=== PATIENT | male | born 1955 | race American Indian/Alaskan Native ===

== ENCOUNTER 2017-01-09 08:40 | Emergency (ER) | payer OTHER ==
[2017-01-09 09:13] LABS: Basophils % (Auto) 0.8 % (0.0-1.8); Eosinophils % (Auto) 3.5 % (0.0-4.3); Hematocrit 42.8 % (35.5-45.6); Hemoglobin 14.1 gm/dl (11.8-15.2); Mean Corpuscular HGB Conc 33 % (32-34); Mean Corpuscular Hemoglobin 32 pg (28-32); Mean Corpuscular Volume 96 fl (84-94); Platelet Count 207 K/mm3 (140-440); Red Blood Count 4.48 M/mm3 (3.65-5.03); Red Cell Distribution Width 12.7 % (13.2-15.2); White Blood Count 6.9 K/mm3 (4.5-11.0)
[2017-01-09 09:30] LABS: Alanine Aminotransferase 23 units/L (7-56); Albumin 4.4 g/dL (3.9-5); Albumin/Globulin Ratio 1.3 %; Alkaline Phosphatase 61 units/L (35-129); Anion Gap 16 mmol/L; BUN/Creatinine Ratio 15.55; Blood Urea Nitrogen 14 mg/dL (9-20); Calcium 9.3 mg/dL (8.4-10.2); Carbon Dioxide 30 mmol/L (22-30); Chloride 100.1 mmol/L (98-107); Glucose 100 mg/dL (75-100); Lipase 36 units/L (13-60); Potassium 4.4 mmol/L (3.6-5.0); Sodium 142 mmol/L (137-145); Total Protein 7.7 g/dL (6.3-8.2)
[2017-01-09 09:38] LABS: Bilirubin,Urine NEG (Negative); Blood,Urine NEG (Negative); Ketones,Urine NEG (Negative); Leukocyte Esterase,Urine NEG (Negative); Nitrite,Urine NEG (Negative); Protein,Urine <15 mg/dL mg/dL (Negative); Urobilinogen,Urine < 2.0 mg/dL (<2.0); WBC,Urine < 1.0 /HPF (0.0-6.0)
[2017-01-09] MEDS ORDERED: TORADOL IV ONE (10:25)
[2017-01-09] MEDS ORDERED: MORPHINE IV ONE (10:25)
[2017-01-09] MEDS ORDERED: ZOFRAN IV ONE (10:25)
--- NOTE | 2017-01-09 10:30 | Emergency Department Report ---
ED Abdominal Pain HPI - General Chief Complaint: Abdominal Pain Stated Complaint: RIGHT LOWER BACK Time Seen by Provider: 01/09/17 10:20 Source: patient Mode of arrival: Ambulatory Limitations: No Limitations - History of Present Illness Initial Comments: Patient is 61 years old male coming today was right flank pain that started 2 days ago, intermittent, stabbing in nature, radiates to his groin. no similar symptoms before. Denied vomiting but he is nauseated. No fever. MD Complaint: abdominal pain, flank pain -: Sudden Location: R flank Migration to: suprapubic Severity scale (0 -10): 7 Quality: stabbing Consistency: intermittent Associated Symptoms: nausea - Related Data Home Medications Medication Instructions Recorded Confirmed Last Taken Albuterol Sulfate [Ventolin HFA] 18 gm IH Q4-6H PRN 01/12/13 03/14/16 02/09/16 Aclidinium [place] [Tudorza 400 mcg IH DAILY 01/12/16 03/14/16 03/13/16 Pressair] Budesoni/Formotero 160-4.5(Nf) 1 puff IH DAILY 01/12/16 03/14/16 02/09/16 [Symbicort 160-4.5 (Nf)] Ipratropium [Atrovent NEB] 0.5 mg IH Q6HRT 01/12/16 03/14/16 03/13/16 Previous Rx's Medication Instructions Recorded Last Taken Type ALBUTEROL NEB's [Proventil 0.083% 2.5 mg IH TID PRN #1 ml 01/12/13 03/13/16 Rx NEBS] Azithromycin [Zithromax Z-SANDRA] 0 mg PO DAILY #1 tab 03/18/16 Unknown Rx Famotidine [Pepcid] 20 mg PO BID #60 tablet 03/18/16 Unknown Rx Labetalol [Normodyne TAB] 200 mg PO BID #60 tablet 03/18/16 Unknown Rx Montelukast [Singulair] 10 mg PO QHS #30 tablet 03/18/16 Unknown Rx Rivaroxaban [Xarelto] 15 mg PO BIDDIAB #42 tablet 03/18/16 Unknown Rx predniSONE [Deltasone] 10 mg PO .TAPER #21 tab 03/18/16 Unknown Rx Ondansetron [Zofran Odt] 4 mg PO Q8HR PRN #14 tab.rapdis 01/09/17 Unknown Rx traMADol [Ultram 50 MG tab] 50 mg PO Q4HR PRN #14 tablet 01/09/17 Unknown Rx Allergies Allergy/AdvReac Type Severity Reaction Status Date / Time Iodinated Contrast Media - Allergy Swelling Verified 02/28/16 03:21 IV Dye ED Review of Systems ROS: Stated complaint: RIGHT LOWER BACK Other details as noted in HPI Comment: All other systems reviewed and negative Constitutional: denies: chills, fever ENT: denies: throat pain Respiratory: denies: cough, shortness of breath Cardiovascular: denies: chest pain, palpitations Gastrointestinal: abdominal pain, nausea. denies: vomiting, diarrhea, constipation, hematemesis, melena, hematochezia Genitourinary: denies: urgency, dysuria, frequency, hematuria, testicular pain, testicular mass Musculoskeletal: back pain Neurological: denies: headache, weakness, numbness ED Past Medical Hx - Past Medical History Hx Hypertension: Yes Hx Headaches / Migraines: No Hx Seizures: No Hx Asthma: Yes Hx COPD: Yes Hx Dementia: No - Surgical History Additional Surgical History: 2000- lung - Social History Smoking Status: Never Smoker Substance Use Type: None - Medications Home Medications: Home Medications Medication Instructions Recorded Confirmed Last Taken Type ALBUTEROL NEB's [Proventil 0.083% 2.5 mg IH TID PRN #1 ml 01/12/13 03/14/16 Rx NEBS] Albuterol Sulfate [Ventolin HFA] 18 gm IH Q4-6H PRN 01/12/13 03/14/16 02/09/16 History Aclidinium [place] [Tudorza 400 mcg IH DAILY 01/12/16 03/14/16 03/13/16 History Pressair] Budesoni/Formotero 160-4.5(Nf) 1 puff IH DAILY 01/12/16 03/14/16 02/09/16 History [Symbicort 160-4.5 (Nf)] Ipratropium [Atrovent NEB] 0.5 mg IH Q6HRT 01/12/16 03/14/16 03/13/16 History Azithromycin [Zithromax Z-SANDRA] 0 mg PO DAILY #1 tab 03/18/16 Unknown Rx Famotidine [Pepcid] 20 mg PO BID #60 tablet 03/18/16 Unknown Rx Labetalol [Normodyne TAB] 200 mg PO BID #60 tablet 03/18/16 Unknown Rx Montelukast [Singulair] 10 mg PO QHS #30 tablet 03/18/16 Unknown Rx Rivaroxaban [Xarelto] 15 mg PO BIDDIAB #42 tablet 03/18/16 Unknown Rx predniSONE [Deltasone] 10 mg PO .TAPER #21 tab 03/18/16 Unknown Rx Ondansetron [Zofran Odt] 4 mg PO Q8HR PRN #14 tab.rapdis 01/09/17 Unknown Rx traMADol [Ultram 50 MG tab] 50 mg PO Q4HR PRN #14 tablet 01/09/17 Unknown Rx ED Physical Exam - General Limitations: No Limitations General appearance: alert, in distress (pain) - Head Head exam: Present: atraumatic, normocephalic - ENT ENT exam: Present: normal exam, normal orophraynx - Neck Neck exam: Present: normal inspection. Absent: tenderness, meningismus - Respiratory Respiratory exam: Present: normal lung sounds bilaterally. Absent: wheezes, rales, rhonchi, chest wall tenderness - Cardiovascular Cardiovascular Exam: Present: regular rate, normal rhythm, normal heart sounds - GI/Abdominal GI/Abdominal exam: Present: soft. Absent: distended, tenderness, guarding, rebound, rigid, mass, bruit, pulsatile mass - Extremities Exam Extremities exam: Present: normal inspection, full ROM - Back Exam Back exam: Present: normal inspection, CVA tenderness (R). Absent: muscle spasm , paraspinal tenderness, vertebral tenderness - Neurological Exam Neurological exam: Present: alert, oriented X3, CN II-XII intact, normal gait. Absent: motor sensory deficit - Skin Skin exam: Present: warm, intact, normal color ED Course Vital Signs 01/09/17 01/09/17 08:46 10:41 Temperature 97.6 F Pulse Rate 68 Respiratory 20 16 Rate Blood Pressure 165/90 O2 Sat by Pulse 99 Oximetry - Reevaluation(s) Reevaluation #1: 01/09/17 12:15 Patient stated that he feels much better after the pain medicine I informed him about his CT abdomen and pelvis results which show gallbladder stones no kidney stone and advised him to follow up with his primary care physician to follow up with the surgeon. ED Medical Decision Making - Lab Data Result diagrams: 01/09/17 08:59 01/09/17 08:59 - Radiology Data Radiology results: report reviewed CT abdomen and pelvis with 5 mm stone in the gallbladder Critical care attestation.: If time is entered above; I have spent that time in minutes in the direct care of this critically ill patient, excluding procedure time. ED Disposition Clinical Impression: Abdominal pain, Gall bladder stones Disposition: - TO HOME OR SELFCARE Is pt being admited?: No Condition: Stable Instructions: Abdominal Pain (ED), Biliary Colic (ED) Prescriptions: Ondansetron [Zofran Odt] 4 mg PO Q8HR PRN #14 tab.rapdis PRN Reason: Nausea And Vomiting traMADol [Ultram 50 MG tab] 50 mg PO Q4HR PRN #14 tablet PRN Reason: Pain Referrals: [facility]PT[facility] [Other] - 3-5 Days
--- NOTE | 2017-01-09 11:32 | Cat Scan Report ---
CT OF THE ABDOMEN AND PELVIS WITHOUT CONTRAST HISTORY: Abdominal pain, right flank pain.. TECHNIQUE: Helical CT without contrast. Sagittal and coronal reformatted images. FINDINGS: A solitary 5 mm calcified gallstone is noted in the neck of the gallbladder. No biliary dilatation or inflammation. Within the limits of a noncontrast exam, the remaining abdominal and pelvic viscera are within normal limits. The liver, biliary system, spleen, kidneys, adrenal glands and bladder are unremarkable. The bowel loops are normal caliber and wall thickness. Normal appendix. The aorta is normal caliber. No ascites, bulky adenopathy or inflammatory changes. The lung bases are clear. Normal heart size. No suspicious bony lesion. Mild degenerative changes are noted in the lumbar spine. IMPRESSION: 5 mm gallstone, otherwise, unremarkable exam.
[2017-01-09 12:57] VITALS: BP 130/87
== END 2017-01-09 12:45 | disposition home or self-care (01) ==
LOC: ED 08:40
DX: K80.20 Calculus of gallbladder without cholecystitis without obstruction (principal); R10.30 Lower abdominal pain, unspecified; I10 Essential (primary) hypertension; J45.909 Unspecified asthma, uncomplicated; Z88.8 Allergy status to other drugs, medicaments and biological substances
CPT/HCPCS: 36415; 74176; 80053; 81001; 83690; 85025; 96374; 96375; 99284; J1885; J2270; J2405

== ENCOUNTER 2018-01-15 01:56 | Inpatient (IN) | payer OTHER ==
[2018-01-15] MEDS ORDERED: DUONEB *Not for PRN Use IH ONE (02:07)
[2018-01-15] MEDS ORDERED: SOLU-Medrol IV ONE (02:18)
--- NOTE | 2018-01-15 02:23 | Emergency Department Report ---
ED Shortness of Breath HPI - General Chief Complaint: Dyspnea/Respdistress Stated Complaint: SOUYMA Time Seen by Provider: 01/15/18 02:15 Source: patient, family Mode of arrival: Wheelchair Limitations: Other - History of Present Illness Initial Comments: Mr. Vega is 62 years old male history of COPD and asthma. Patient presented to the ER complaining of difficulty breathing and wheezing for the last 2 days. Patient stated that he's been using his albuterol regularly but no improvement. Patient denied any chest pain, fever, nausea or vomiting. MD Complaint: shortness of breath, cough, "asthma attack" -: days(s) Severity: moderate Known History Of: COPD, asthma Context: recent URI - Related Data Home Medications Medication Instructions Recorded Confirmed Last Taken Albuterol Sulfate [Ventolin HFA] 18 gm IH Q4-6H PRN 01/12/13 03/14/16 02/09/16 Aclidinium [place] [Tudorza 400 mcg IH DAILY 01/12/16 03/14/16 03/13/16 Pressair] Budesoni/Formotero 160-4.5(Nf) 1 puff IH DAILY 01/12/16 03/14/16 02/09/16 [Symbicort 160-4.5 (Nf)] Ipratropium [Atrovent NEB] 0.5 mg IH Q6HRT 01/12/16 03/14/16 03/13/16 Previous Rx's Medication Instructions Recorded Last Taken Type ALBUTEROL NEB's [Proventil 0.083% 2.5 mg IH TID PRN #1 ml 01/12/13 03/13/16 Rx NEBS] Azithromycin [Zithromax Z-SANDRA] 0 mg PO DAILY #1 tab 03/18/16 Unknown Rx Famotidine [Pepcid] 20 mg PO BID #60 tablet 03/18/16 Unknown Rx Labetalol [Normodyne TAB] 200 mg PO BID #60 tablet 03/18/16 Unknown Rx Montelukast [Singulair] 10 mg PO QHS #30 tablet 03/18/16 Unknown Rx Rivaroxaban [Xarelto] 15 mg PO BIDDIAB #42 tablet 03/18/16 Unknown Rx predniSONE [Deltasone] 10 mg PO .TAPER #21 tab 03/18/16 Unknown Rx Ondansetron [Zofran Odt] 4 mg PO Q8HR PRN #14 tab.rapdis 01/09/17 Unknown Rx traMADol [Ultram 50 MG tab] 50 mg PO Q4HR PRN #14 tablet 01/09/17 Unknown Rx Allergies Allergy/AdvReac Type Severity Reaction Status Date / Time Iodinated Contrast- Oral and Allergy Swelling Verified 02/28/16 03:21 IV Dye [Iodinated Contrast Media - IV Dye] ED Review of Systems ROS: Stated complaint: SOUMYA Other details as noted in HPI Comment: All other systems reviewed and negative Constitutional: denies: chills, fever ENT: denies: throat pain Respiratory: cough, shortness of breath, SOB with exertion, SOB at rest, wheezing Cardiovascular: dyspnea on exertion, orthopnea. denies: chest pain, palpitations Gastrointestinal: denies: abdominal pain, nausea, vomiting, diarrhea, constipation, hematemesis, melena, hematochezia Genitourinary: denies: urgency, dysuria, frequency, hematuria, discharge Neurological: denies: headache, weakness, numbness, paresthesias, confusion, abnormal gait ED Past Medical Hx - Past Medical History Previous Medical History?: Yes Hx Hypertension: Yes Hx Headaches / Migraines: No Hx Seizures: No Hx Asthma: Yes Hx COPD: Yes Hx Dementia: No - Surgical History Past Surgical History?: Yes Additional Surgical History: 2000- lung - Social History Smoking Status: Never Smoker Substance Use Type: Alcohol - Medications Home Medications: Home Medications Medication Instructions Recorded Confirmed Last Taken Type ALBUTEROL NEB's [Proventil 0.083% 2.5 mg IH TID PRN #1 ml 01/12/13 03/14/16 Rx NEBS] Albuterol Sulfate [Ventolin HFA] 18 gm IH Q4-6H PRN 01/12/13 03/14/16 02/09/16 History Aclidinium [place] [Tudorza 400 mcg IH DAILY 01/12/16 03/14/16 03/13/16 History Pressair] Budesoni/Formotero 160-4.5(Nf) 1 puff IH DAILY 01/12/16 03/14/16 02/09/16 History [Symbicort 160-4.5 (Nf)] Ipratropium [Atrovent NEB] 0.5 mg IH Q6HRT 01/12/16 03/14/16 03/13/16 History Azithromycin [Zithromax Z-SANDRA] 0 mg PO DAILY #1 tab 03/18/16 Unknown Rx Famotidine [Pepcid] 20 mg PO BID #60 tablet 03/18/16 Unknown Rx Labetalol [Normodyne TAB] 200 mg PO BID #60 tablet 03/18/16 Unknown Rx Montelukast [Singulair] 10 mg PO QHS #30 tablet 03/18/16 Unknown Rx Rivaroxaban [Xarelto] 15 mg PO BIDDIAB #42 tablet 03/18/16 Unknown Rx predniSONE [Deltasone] 10 mg PO .TAPER #21 tab 03/18/16 Unknown Rx Ondansetron [Zofran Odt] 4 mg PO Q8HR PRN #14 tab.rapdis 01/09/17 Unknown Rx traMADol [Ultram 50 MG tab] 50 mg PO Q4HR PRN #14 tablet 01/09/17 Unknown Rx ED Physical Exam - General Limitations: Other General appearance: alert, in distress (moderate respiratory distress), other ( decubiti) - Head Head exam: Present: atraumatic, normocephalic, normal inspection - Eye Eye exam: Present: normal appearance, PERRL - ENT ENT exam: Present: normal exam, normal orophraynx, mucous membranes moist - Neck Neck exam: Present: normal inspection, full ROM. Absent: tenderness, meningismus, lymphadenopathy, thyromegaly - Respiratory Respiratory exam: Present: respiratory distress, wheezes, rales, rhonchi, decreased breath sounds, prolonged expiratory. Absent: stridor, accessory muscle use - Cardiovascular Cardiovascular Exam: Present: regular rate, normal rhythm, normal heart sounds - GI/Abdominal GI/Abdominal exam: Present: soft, normal bowel sounds. Absent: distended, tenderness, guarding, rebound, rigid, organomegaly, mass, pulsatile mass - Extremities Exam Extremities exam: Present: normal inspection, full ROM, normal capillary refill. Absent: tenderness, pedal edema, calf tenderness - Back Exam Back exam: Present: normal inspection, full ROM. Absent: tenderness, CVA tenderness (R), CVA tenderness (L), muscle spasm, paraspinal tenderness, vertebral tenderness, rash noted - Neurological Exam Neurological exam: Present: alert, oriented X3, CN II-XII intact, normal gait, reflexes normal - Skin Skin exam: Present: warm, intact, normal color ED Course Vital Signs 01/15/18 01/15/18 01/15/18 02:00 02:03 02:13 Temperature 97.7 F Pulse Rate 99 H 95 H Pulse Rate [ 100 H Posterior Bilateral Throughout] Respiratory 26 H 30 H Rate Respiratory 28 H Rate [Posterior Bilateral Throughout] Blood Pressure 181/95 Blood Pressure 178/85 [Left] O2 Sat by Pulse 88 98 Oximetry 01/15/18 01/15/18 01/15/18 02:21 02:45 03:15 Temperature Pulse Rate 111 H 88 Pulse Rate [ 93 H Posterior Bilateral Throughout] Respiratory 25 H 19 Rate Respiratory 22 Rate [Posterior Bilateral Throughout] Blood Pressure 169/94 Blood Pressure [Left] O2 Sat by Pulse 100 97 Oximetry 01/15/18 01/15/18 03:45 04:45 Temperature Pulse Rate 87 84 Pulse Rate [ Posterior Bilateral Throughout] Respiratory 22 21 Rate Respiratory Rate [Posterior Bilateral Throughout] Blood Pressure 166/95 176/91 Blood Pressure [Left] O2 Sat by Pulse 99 97 Oximetry ED Medical Decision Making - Lab Data Result diagrams: 01/15/18 02:32 01/15/18 02:32 - Radiology Data Radiology results: report reviewed - Medical Decision Making Mr. Vega is 62 years old male history of COPD and asthma. Patient presented to the ER complaining of difficulty breathing and wheezing for the last 2 days. Patient stated that he's been using his albuterol regularly but no improvement. Patient denied any chest pain, fever, nausea or vomiting. Patient stated that he is feeling much better. Lung exam no wheezing. I advised patient to follow-up with his primary care physician in the next 2-3 days entertained to the ER if symptoms are not improving. Critical Care Time: Yes Critical care time in (mins) excluding proc time.: 30 Critical care attestation.: If time is entered above; I have spent that time in minutes in the direct care of this critically ill patient, excluding procedure time. ED Disposition Clinical Impression: Acute exacerbation of COPD with asthma Disposition: -01 TO HOME OR SELFCARE Is pt being admited?: No Condition: Stable Instructions: Asthma (ED), Chronic Obstructive Pulmonary Disease (ED) Referrals: PRIMARY CARE, [Primary Care Provider] - 3-5 Days
[2018-01-15] MEDS ORDERED: ATIVAN IV ONE (02:36)
[2018-01-15] MEDS ORDERED: ATIVAN ONE (02:41)
[2018-01-15 02:43] LABS: Basophils # (Auto) 0.1 K/mm3 (0.0-0.1); Basophils % (Auto) 0.8 % (0.0-1.8); Eosinophils # (Auto) 0.4 K/mm3 (0.0-0.4); Eosinophils % (Auto) 4.3 % (0.0-4.3); Hematocrit 42.9 % (35.5-45.6); Hemoglobin 14.2 gm/dl (11.8-15.2); Lymphocytes # (Auto) 3.6 K/mm3 (1.2-5.4); Lymphocytes % (Auto) 41.5 % (13.4-35.0); Mean Corpuscular HGB Conc 33 % (32-34); Mean Corpuscular Hemoglobin 32 pg (28-32); Mean Corpuscular Volume 97 fl (84-94); Monocytes # (Auto) 0.9 K/mm3 (0.0-0.8); Monocytes % (Auto) 10.9 % (0.0-7.3); Platelet Count 209 K/mm3 (140-440); Red Cell Distribution Width 13.1 % (13.2-15.2)
[2018-01-15 02:59] LABS: BUN/Creatinine Ratio 16; Blood Urea Nitrogen 16 mg/dL (9-20); Calcium 9.3 mg/dL (8.4-10.2); Hemolysis Index 25
--- NOTE | 2018-01-15 02:59 | XRay Report ---
FINAL REPORT PROCEDURE: XR CHEST 1V AP TECHNIQUE: Chest radiograph anteroposterior view. CPT 73753 HISTORY: sob COMPARISON: No prior studies are available for comparison. FINDINGS: Heart: Normal. Mediastinum/Vessels: Normal. Lungs/Pleural space: Lung bases are not included on the examination. Remainder the lungs are clear and expanded.. Bony thorax: No acute osseous abnormality. Life support devices: None. IMPRESSION: No acute cardiopulmonary abnormality.
[2018-01-15] MEDS ORDERED: MAGNESIUM SULFATE 1 GM in NACL 0.9% 50 ML IV ONE (05:57)
[2018-01-15] MEDS ORDERED: XOPENEX IH ONE (05:57)
[2018-01-15] MEDS ORDERED: PROVENTIL IH PRN ×2 (07:30→09:17)
[2018-01-15] MEDS: SOLU-Medrol IV SCH ×3 (07:52→17:43)
[2018-01-15] MEDS ORDERED: ZOFRAN ODT PO PRN (09:17)
[2018-01-15] MEDS ORDERED: TYLENOL PO PRN (09:17)
[2018-01-15] MEDS ORDERED: PROAIR IH PRN (09:17)
[2018-01-15] MEDS ORDERED: ULTRAM PO PRN (09:17)
[2018-01-15] MEDS ORDERED: SODIUM CHLORIDE FLUSH SYRINGE 10 ML IV PRN (09:17)
[2018-01-15] MEDS ORDERED: ZOFRAN IV PRN (09:17)
--- NOTE | 2018-01-15 09:17 | History and Physical Report ---
History of Present Illness Date of examination: 01/15/18 Date of admission: 01/15/18 06:59 Chief complaint: SOB and wheezing for 2days History of present illness: History of Present Illness: 62 years old Black male with history of COPD and asthma presented to the ER complaining of difficulty breathing and wheezing for the last 2 days. Patient stated that he's been using his albuterol regularly but no improvement. Patient denied any chest pain, fever, nausea or vomiting. shortness of breath on minimal exertion.Class IV NYHA symptoms. Past Medical History Previous Medical History?: Yes Hx Hypertension: Yes Hx Asthma: Yes Hx COPD: Yes Surgical History Past Surgical History?: Yes Additional Surgical History: 2000- lung Social History Smoking Status: Never Smoker Substance Use Type: Alcohol Medications Home Medications: Home Medications Medication Instructions Recorded Confirmed Last Taken Type ALBUTEROL NEB's [Proventil 0.083% 2.5 mg IH TID PRN #1 ml 01/12/13 03/14/16 Rx NEBS] Albuterol Sulfate [Ventolin HFA] 18 gm IH Q4-6H PRN 01/12/13 03/14/16 02/09/16 History Aclidinium [place] [Tudorza 400 mcg IH DAILY 01/12/16 03/14/16 03/13/16 History Pressair] Budesoni/Formotero 160-4.5(Nf) 1 puff IH DAILY 01/12/16 03/14/16 02/09/16 History [Symbicort 160-4.5 (Nf)] Ipratropium [Atrovent NEB] 0.5 mg IH Q6HRT 01/12/16 03/14/16 03/13/16 History Azithromycin [Zithromax Z-SANDRA] 0 mg PO DAILY #1 tab 03/18/16 Unknown Rx Famotidine [Pepcid] 20 mg PO BID #60 tablet 03/18/16 Unknown Rx Labetalol [Normodyne TAB] 200 mg PO BID #60 tablet 03/18/16 Unknown Rx Montelukast [Singulair] 10 mg PO QHS #30 tablet 03/18/16 Unknown Rx Rivaroxaban [Xarelto] 15 mg PO BIDDIAB #42 tablet 03/18/16 Unknown Rx predniSONE [Deltasone] 10 mg PO .TAPER #21 tab 03/18/16 Unknown Rx Ondansetron [Zofran Odt] 4 mg PO Q8HR PRN #14 tab.rapdis 01/09/17 Unknown Rx traMADol [Ultram 50 MG tab] 50 mg PO Q4HR PRN #14 tablet 01/09/17 Unknown Rx Review of Systems ROS: Stated complaint: SOUMYA Other details as noted in HPI Comment: All other systems reviewed and negative Constitutional: denies: chills, fever ENT: denies: throat pain Respiratory: cough, shortness of breath, SOB with exertion, SOB at rest, wheezing Cardiovascular: dyspnea on exertion, orthopnea. denies: chest pain, palpitations Gastrointestinal: denies: abdominal pain, nausea, vomiting, diarrhea, constipation, hematemesis, melena, hematochezia Genitourinary: denies: urgency, dysuria, frequency, hematuria, discharge Neurological: denies: headache, weakness, numbness, paresthesias, confusion, abnormal gait Medications and Allergies Allergies Allergy/AdvReac Type Severity Reaction Status Date / Time Iodinated Contrast- Oral and Allergy Swelling Verified 02/28/16 03:21 IV Dye [Iodinated Contrast Media - IV Dye] Home Medications Medication Instructions Recorded Confirmed Last Taken Type Aclidinium [place] [Tudorza 2 puff IH BID 01/12/16 01/15/18 01/15/18 History Pressair] Budesoni/Formotero 160-4.5(Nf) 2 puff IH BID 01/12/16 01/15/18 01/15/18 History [Symbicort 160-4.5 (Nf)] Amlodipine Besylate [Norvasc] 10 mg PO DAILY #30 tablet 01/15/18 Unknown Rx Aspirin [Adult Low Dose Aspirin EC] 81 mg PO QAM 01/15/18 01/15/18 01/15/18 History Furosemide [Lasix TAB] 40 mg PO QDAY 01/15/18 01/15/18 01/15/18 History Potassium Chloride [Klor-Con 10] 10 meq PO QDAY 01/15/18 01/15/18 01/15/18 History Prednisone [predniSONE 10 mg 10 mg PO .TAPER #1 tab.ds.pk 01/15/18 Unknown Rx (6-Day Pack, 21 Tabs)] Rivaroxaban [Xarelto] 20 mg PO QDAY 01/15/18 01/15/18 01/15/18 History Active Meds: Active Medications Albuterol (Proventil) 2.5 mg IH Q4H PRN PRN Reason: Wheezing Methylprednisolone Sodium Succinate (Solu-Medrol) 125 mg IV Q6HR ELVIA Last Admin: 01/15/18 07:52 Dose: 125 mg Exam - Constitutional Vitals: Temp Pulse Resp BP Pulse Ox 97.7 F 88 20 157/93 96 01/15/18 02:13 01/15/18 06:50 01/15/18 06:50 01/15/18 06:31 01/15/18 06:31 General appearance: Present: mild distress, well-nourished - EENT Eyes: Present: PERRL ENT: hearing intact, clear oral mucosa - Neck Neck: Present: supple, normal ROM - Respiratory Respiratory effort: normal Respiratory: bilateral: CTA - Cardiovascular Heart rate: 76 Rhythm: regular Heart Sounds: Present: S1 & S2. Absent: rub, click - Extremities Extremities: no ischemia, pulses intact, pulses symmetrical, No edema Peripheral Pulses: within normal limits - Abdominal General gastrointestinal: Present: soft, non-tender, non-distended, normal bowel sounds Male genitourinary: Present: normal - Rectal Rectal Exam: deferred - Integumentary Integumentary: Present: clear, warm, dry - Musculoskeletal Musculoskeletal: gait normal, strength equal bilaterally - Psychiatric Psychiatric: appropriate mood/affect, intact judgment & insight - Neurologic Neurologic: CNII-XII intact, moves all extremities - Allied Health Allied health notes reviewed: nursing, case management Results - Labs CBC & Chem 7: 01/15/18 02:32 01/15/18 02:32 Labs: Laboratory Last Values WBC 8.6 K/mm3 (4.5-11.0) 01/15/18 02:32 RBC 4.40 M/mm3 (3.65-5.03) 01/15/18 02:32 Hgb 14.2 gm/dl (11.8-15.2) 01/15/18 02:32 Hct 42.9 % (35.5-45.6) 01/15/18 02:32 MCV 97 fl (84-94) H 01/15/18 02:32 MCH 32 pg (28-32) 01/15/18 02:32 MCHC 33 % (32-34) 01/15/18 02:32 RDW 13.1 % (13.2-15.2) L 01/15/18 02:32 Plt Count 209 K/mm3 (140-440) 01/15/18 02:32 Lymph % (Auto) 41.5 % (13.4-35.0) H 01/15/18 02:32 [place] % (Auto) 10.9 % (0.0-7.3) H 01/15/18 02:32 Eos % (Auto) 4.3 % (0.0-4.3) 01/15/18 02:32 Baso % (Auto) 0.8 % (0.0-1.8) 01/15/18 02:32 Lymph # 3.6 K/mm3 (1.2-5.4) 01/15/18 02:32 [place] # 0.9 K/mm3 (0.0-0.8) H 01/15/18 02:32 Eos # 0.4 K/mm3 (0.0-0.4) 01/15/18 02:32 Baso # 0.1 K/mm3 (0.0-0.1) 01/15/18 02:32 Seg Neutrophils % 42.5 % (40.0-70.0) 01/15/18 02:32 Seg Neutrophils # 3.7 K/mm3 (1.8-7.7) 01/15/18 02:32 POC ABG pH 7.364 (7.35-7.45) 01/15/18 06:05 POC ABG pCO2 51.8 (35-45) H 01/15/18 06:05 POC ABG pO2 73 (80-105) L 01/15/18 06:05 POC ABG HCO3 29.6 01/15/18 06:05 POC ABG Total CO2 31 01/15/18 06:05 POC ABG O2 Sat 94 01/15/18 06:05 POC ABG Base Excess 4 01/15/18 06:05 FiO2 28 % 01/15/18 06:05 Sodium 144 mmol/L (137-145) 01/15/18 02:32 Potassium 4.1 mmol/L (3.6-5.0) 01/15/18 02:32 Chloride 101.7 mmol/L (98-107) 01/15/18 02:32 Carbon Dioxide 31 mmol/L (22-30) H 01/15/18 02:32 Anion Gap 15 mmol/L 01/15/18 02:32 BUN 16 mg/dL (9-20) 01/15/18 02:32 Creatinine 1.0 mg/dL (0.8-1.5) 01/15/18 02:32 Estimated GFR > 60 ml/min 01/15/18 02:32 BUN/Creatinine Ratio 16 % 01/15/18 02:32 Glucose 109 mg/dL (75-100) H 01/15/18 02:32 Calcium 9.3 mg/dL (8.4-10.2) 01/15/18 02:32 NT-Pro-B Natriuret Pep 37.34 pg/mL (0-900) 01/15/18 02:32 - Imaging and Cardiology EKG: report reviewed Imaging and Cardiology: CXR NAF Assessment and Plan Advance Directives: Yes (Full xcode) Plan of care discussed with patient/family: Yes - Patient Problems (1) Acute respiratory failure with hypoxia Current Visit: No Status: Acute Plan to address problem: IV Abx IV Solumedrol and Duonebs Bipap as necessary Intubation if necessary (2) Acute exacerbation of COPD with asthma Current Visit: Yes Status: Acute Plan to address problem: As above (3) Hypertension Current Visit: No Status: Chronic Qualifiers: Hypertension type: essential hypertension Qualified Code(s): I10 - Essential (primary) hypertension Plan to address problem: Cont antihypertensives (4) CHF (congestive heart failure) Current Visit: Yes Status: Chronic Qualifiers: Heart failure type: combined systolic and diastolic Plan to address problem: Cont Lasix Echo ordered (5) Anticoagulation adequate Current Visit: Yes Status: Chronic Plan to address problem: on Xarelto for Pulmonary embolism (6) GERD (gastroesophageal reflux disease) Current Visit: Yes Status: Chronic Qualifiers: Esophagitis presence: without esophagitis Qualified Code(s): K21.9 - Gastro -esophageal reflux disease without esophagitis Plan to address problem: Cont Famotidine (7) DVT prophylaxis Current Visit: Yes Status: Acute Plan to address problem: on lovenox And GI prophylaxis
[2018-01-15] MEDS ORDERED: ACLIDINIUM BROMIDE 400 MCG IH SCH (10:00)
[2018-01-15] MEDS: SODIUM CHLORIDE FLUSH SYRINGE 10 ML IV SCH ×2 (10:00→22:34)
[2018-01-15] MEDS ORDERED: NON-FORMULARY (Budesoni/Formotero 160-4.5(Nf) 1 PUFF) IH SCH (10:00)
[2018-01-15] MEDS ORDERED: DELTASONE PO SCH (10:00)
[2018-01-15] MEDS: NORMODYNE PO SCH ×2 (10:00→22:33)
[2018-01-15] MEDS: PEPCID PO SCH ×2 (10:00→22:33)
[2018-01-15] MEDS: ATROVENT IH SCH ×4 (15:19→19:05)
[2018-01-15] MEDS: XARELTO PO SCH (17:38)
[2018-01-15] MEDS: BROVANA NEBU IH SCH ×2 (18:08→19:05)
[2018-01-15] MEDS: PULMICORT IH SCH ×2 (18:09→19:06)
[2018-01-15] MEDS: SINGULAIR PO SCH (22:32)
[2018-01-16] MEDS: SOLU-Medrol IV SCH ×3 (00:41→18:27)
[2018-01-16] MEDS: ATROVENT IH SCH ×4 (02:12→20:13)
[2018-01-16] MEDS: PULMICORT IH SCH ×2 (07:50→20:13)
[2018-01-16] MEDS: BROVANA NEBU IH SCH ×2 (07:50→20:13)
[2018-01-16] MEDS: XARELTO PO SCH (08:44)
[2018-01-16] MEDS: LEVAQUIN 750MG/150ML 750 MG/150 ML BAG IV SCH (08:45)
[2018-01-16] MEDS: NORMODYNE PO SCH ×2 (08:59→22:19)
[2018-01-16] MEDS: PEPCID PO SCH ×2 (08:59→22:19)
[2018-01-16] MEDS: SODIUM CHLORIDE FLUSH SYRINGE 10 ML IV SCH ×2 (09:00→22:00)
--- NOTE | 2018-01-16 12:53 | Progress Note ---
Subjective Date of service: 01/16/18 Objective - Constitutional Vitals: Vital Signs - 12hr 01/16/18 01/16/18 01/16/18 05:49 07:50 08:02 Temperature 98.0 F Pulse Rate 81 Pulse Rate [ 92 H Posterior Bilateral Throughout] Pulse Rate [ 92 H Throughout] Respiratory 20 Rate Respiratory 20 Rate [Posterior Bilateral Throughout] Respiratory 20 Rate [ Throughout] Blood Pressure 127/76 Blood Pressure [Left] O2 Sat by Pulse 94 96 Oximetry 01/16/18 01/16/18 01/16/18 08:10 08:23 12:12 Temperature 97.6 F 97.4 F L Pulse Rate 81 86 Pulse Rate [ 87 Posterior Bilateral Throughout] Pulse Rate [ 87 Throughout] Respiratory 18 20 Rate Respiratory 20 Rate [Posterior Bilateral Throughout] Respiratory 20 Rate [ Throughout] Blood Pressure Blood Pressure 134/97 138/60 [Left] O2 Sat by Pulse 95 95 Oximetry - Labs CBC & Chem 7: 01/15/18 02:32 01/15/18 02:32
--- NOTE | 2018-01-16 15:18 | Progress Note ---
Assessment and Plan - Patient Problems (1) Acute respiratory failure with hypoxia Current Visit: No Status: Acute Plan to address problem: IV Abx IV Solumedrol and Duonebs Bipap as necessary Intubation if necessary (2) Acute exacerbation of COPD with asthma Current Visit: Yes Status: Acute Plan to address problem: As above (3) Hypertension Current Visit: No Status: Chronic Qualifiers: Hypertension type: essential hypertension Qualified Code(s): I10 - Essential (primary) hypertension Plan to address problem: Cont antihypertensives (4) CHF (congestive heart failure) Current Visit: Yes Status: Chronic Qualifiers: Heart failure type: combined systolic and diastolic Plan to address problem: Cont Lasix Echo ordered (5) Anticoagulation adequate Current Visit: Yes Status: Chronic Plan to address problem: on Xarelto for Pulmonary embolism (6) GERD (gastroesophageal reflux disease) Current Visit: Yes Status: Chronic Qualifiers: Esophagitis presence: without esophagitis Qualified Code(s): K21.9 - Gastro -esophageal reflux disease without esophagitis Plan to address problem: Cont Famotidine (7) DVT prophylaxis Current Visit: Yes Status: Acute Plan to address problem: on lovenox And GI prophylaxis Subjective Date of service: 01/16/18 Principal diagnosis: Resp failure and Copd exacerbation Interval history: Improving Objective - Constitutional Vitals: Vital Signs - 12hr 01/16/18 01/16/18 01/16/18 05:49 07:50 08:02 Temperature 98.0 F Pulse Rate 81 Pulse Rate [ 92 H Posterior Bilateral Throughout] Pulse Rate [ 92 H Throughout] Respiratory 20 Rate Respiratory 20 Rate [Posterior Bilateral Throughout] Respiratory 20 Rate [ Throughout] Blood Pressure 127/76 Blood Pressure [Left] O2 Sat by Pulse 94 96 Oximetry 01/16/18 01/16/18 01/16/18 08:10 08:23 10:00 Temperature 97.6 F Pulse Rate 81 75 Pulse Rate [ 87 Posterior Bilateral Throughout] Pulse Rate [ 87 Throughout] Respiratory 18 18 Rate Respiratory 20 Rate [Posterior Bilateral Throughout] Respiratory 20 Rate [ Throughout] Blood Pressure Blood Pressure 134/97 [Left] O2 Sat by Pulse 95 Oximetry 01/16/18 01/16/18 01/16/18 12:12 13:45 14:10 Temperature 97.4 F L Pulse Rate 86 Pulse Rate [ 90 93 H Posterior Bilateral Throughout] Pulse Rate [ 90 93 H Throughout] Respiratory 20 Rate Respiratory 20 20 Rate [Posterior Bilateral Throughout] Respiratory 20 20 Rate [ Throughout] Blood Pressure Blood Pressure 138/60 [Left] O2 Sat by Pulse 95 Oximetry General appearance: Present: no acute distress, well-nourished - EENT Eyes: PERRL, EOM intact ENT: hearing intact, clear oral mucosa Ears: bilateral: normal - Neck Neck: supple, normal ROM - Respiratory Respiratory effort: normal Respiratory: bilateral: CTA - Breasts Breasts: normal - Cardiovascular Heart rate: 76 Rhythm: regular Heart Sounds: Present: S1 & S2. Absent: gallop, rub Extremities: pulses intact, No edema, normal color, Full ROM - Gastrointestinal General gastrointestinal: Present: soft, non-tender, non-distended, normal bowel sounds - Genitourinary Male genitourinary: normal - Integumentary Integumentary: clear, warm, dry - Musculoskeletal Musculoskeletal: 1, strength equal bilaterally - Neurologic Neurologic: moves all extremities - Psychiatric Psychiatric: memory intact, appropriate mood/affect, intact judgment & insight - Labs CBC & Chem 7: 01/15/18 02:32 01/15/18 02:32
[2018-01-16] MEDS: SINGULAIR PO SCH (22:19)
[2018-01-17] MEDS: ATROVENT IH SCH ×4 (01:51→21:36)
[2018-01-17] MEDS: SOLU-Medrol IV SCH ×5 (06:00→23:28)
[2018-01-17] MEDS: BROVANA NEBU IH SCH ×2 (10:57→19:46)
[2018-01-17] MEDS: PULMICORT IH SCH ×2 (10:57→19:47)
[2018-01-17] MEDS: NORMODYNE PO SCH ×2 (11:01→21:45)
[2018-01-17] MEDS: PEPCID PO SCH ×2 (11:01→21:45)
[2018-01-17] MEDS: LEVAQUIN 750MG/150ML 750 MG/150 ML BAG IV SCH (11:02)
[2018-01-17] MEDS: SODIUM CHLORIDE FLUSH SYRINGE 10 ML IV SCH ×2 (11:02→21:46)
[2018-01-17] MEDS: XARELTO PO SCH (12:08)
--- NOTE | 2018-01-17 15:23 | Consultation ---
History of Present Illness Consult date: 01/17/18 Requesting physician: PARK MANTILLA Reason for consult: dyspnea, asthma History of present illness: 62 yo with asthma and COPD. Developed 1-2 days of increased SOB, wheezing, chest tightness, cough with thick white and sometimes yellow sputum. No fevers, chills, hemoptysis. Home Albuterol was not helping so he came to ED. Feels better already since initial presentation. Active Medications Acetaminophen (Tylenol) 650 mg PO Q4H PRN PRN Reason: Pain MILD(1-3)/Fever >100.5/SIMMONS Albuterol (Proventil) 2.5 mg IH Q4H PRN PRN Reason: Wheezing Last Admin: 01/16/18 13:45 Dose: 2.5 mg Arformoterol Tartrate (Brovana Nebu) 15 mcg IH Q12HRT [facility] Last Admin: 01/17/18 10:57 Dose: 15 mcg Budesonide (Pulmicort) 1 mg IH Q12HRT [facility] Last Admin: 01/17/18 10:57 Dose: 1 mg Famotidine (Pepcid) 20 mg PO BID [facility] Last Admin: 01/17/18 11:01 Dose: 20 mg Levofloxacin/Dextrose (Levaquin 750mg/150ml) 750 mg in 150 mls @ 100 mls/hr IV Q24HR [facility]; Protocol Last Admin: 01/17/18 11:02 Dose: 100 mls/hr Ipratropium [place] (Atrovent) 0.5 mg IH Q6HRT [facility] Last Admin: 01/17/18 14:59 Dose: 0.5 mg Labetalol HCl (Normodyne) 200 mg PO BID [facility] Last Admin: 01/17/18 11:01 Dose: 200 mg Methylprednisolone Sodium Succinate (Solu-Medrol) 60 mg IV Q6HR [facility] Montelukast Sodium (Singulair) 10 mg PO QHS [facility] Last Admin: 01/16/18 22:19 Dose: 10 mg Ondansetron HCl (Zofran) 4 mg IV Q8H PRN PRN Reason: Nausea And Vomiting Ondansetron HCl (Zofran Odt) 4 mg PO Q8HR PRN PRN Reason: Nausea And Vomiting Prednisone (Deltasone) 10 mg PO .TAPER ELVIA Rivaroxaban (Xarelto) 20 mg PO QDAY [facility]; Protocol Last Admin: 01/17/18 12:08 Dose: 20 mg Sodium Chloride (Sodium Chloride Flush Syringe 10 Ml) 10 ml IV BID [facility] Last Admin: 01/17/18 11:02 Dose: 10 ml Sodium Chloride (Sodium Chloride Flush Syringe 10 Ml) 10 ml IV PRN PRN PRN Reason: LINE FLUSH Tramadol HCl (Ultram) 50 mg PO Q4HR PRN PRN Reason: Pain Past History Past Medical History: other (asthma, copd, james, HTN) Social history: full code. denies: smoking, alcohol abuse, prescription drug abuse, IV drug use Family history: other (No pulm issues reported) Medications and Allergies Allergies Allergy/AdvReac Type Severity Reaction Status Date / Time Iodinated Contrast- Oral and Allergy Swelling Verified 02/28/16 03:21 IV Dye [Iodinated Contrast Media - IV Dye] Home Medications Medication Instructions Recorded Confirmed Last Taken Type Aclidinium [place] [Tudorza 2 puff IH BID 01/12/16 01/15/18 01/15/18 History Pressair] Budesoni/Formotero 160-4.5(Nf) 2 puff IH BID 01/12/16 01/15/18 01/15/18 History [Symbicort 160-4.5 (Nf)] Amlodipine Besylate [Norvasc] 10 mg PO DAILY #30 tablet 01/15/18 Unknown Rx Aspirin [Adult Low Dose Aspirin EC] 81 mg PO QAM 01/15/18 01/15/18 01/15/18 History Furosemide [Lasix TAB] 40 mg PO QDAY 01/15/18 01/15/18 01/15/18 History Potassium Chloride [Klor-Con 10] 10 meq PO QDAY 01/15/18 01/15/18 01/15/18 History Prednisone [predniSONE 10 mg 10 mg PO .TAPER #1 tab.ds.pk 01/15/18 Unknown Rx (6-Day Pack, 21 Tabs)] Rivaroxaban [Xarelto] 20 mg PO QDAY 01/15/18 01/15/18 01/15/18 History Active Meds: Active Medications Acetaminophen (Tylenol) 650 mg PO Q4H PRN PRN Reason: Pain MILD(1-3)/Fever >100.5/[place]MONS Albuterol (Proventil) 2.5 mg IH Q4H PRN PRN Reason: Wheezing Last Admin: 01/16/18 13:45 Dose: 2.5 mg Arformoterol Tartrate (Brovana Nebu) 15 mcg IH Q12HRT [facility] Last Admin: 01/17/18 10:57 Dose: 15 mcg Budesonide (Pulmicort) 1 mg IH Q12HRT [facility] Last Admin: 01/17/18 10:57 Dose: 1 mg Famotidine (Pepcid) 20 mg PO BID [facility] Last Admin: 01/17/18 11:01 Dose: 20 mg Levofloxacin/Dextrose (Levaquin 750mg/150ml) 750 mg in 150 mls @ 100 mls/hr IV Q24HR [facility]; Protocol Last Admin: 01/17/18 11:02 Dose: 100 mls/hr Ipratropium [place] (Atrovent) 0.5 mg IH Q6HRT [facility] Last Admin: 01/17/18 14:59 Dose: 0.5 mg Labetalol HCl (Normodyne) 200 mg PO BID [facility] Last Admin: 01/17/18 11:01 Dose: 200 mg Methylprednisolone Sodium Succinate (Solu-Medrol) 60 mg IV Q6HR [facility] Montelukast Sodium (Singulair) 10 mg PO QHS [facility] Last Admin: 01/16/18 22:19 Dose: 10 mg Ondansetron HCl (Zofran) 4 mg IV Q8H PRN PRN Reason: Nausea And Vomiting Ondansetron HCl (Zofran Odt) 4 mg PO Q8HR PRN PRN Reason: Nausea And Vomiting Prednisone (Deltasone) 10 mg PO .TAPER ELVIA Rivaroxaban (Xarelto) 20 mg PO QDAY [facility]; Protocol Last Admin: 01/17/18 12:08 Dose: 20 mg Sodium Chloride (Sodium Chloride Flush Syringe 10 Ml) 10 ml IV BID [facility] Last Admin: 01/17/18 11:02 Dose: 10 ml Sodium Chloride (Sodium Chloride Flush Syringe 10 Ml) 10 ml IV PRN PRN PRN Reason: LINE FLUSH Tramadol HCl (Ultram) 50 mg PO Q4HR PRN PRN Reason: Pain Review of Systems All systems: negative Physical Examination Vital signs: Vital Signs Pulse Resp 100 H 28 H 01/15/18 02:00 01/15/18 02:00 General appearance: no acute distress, alert Eyes: non-icteric ENT: oropharynx moist Neck: supple Effort: normal Ascultation: Bilateral: diminished breath sounds (due to obesity) Cardiovascular: regular rate and rhythm (no mrg) Gastrointestinal: normoactive bowel sounds, soft, non-tender, non-distended Integumentary: normal Extremities: no cyanosis, no edema, pink and warm Musculoskeletal: no deformities normal mental status, non-focal exam, pupils equal and round, CN II-XII normal mood appropriate, affect normal Results - Laboratory Findings CBC and BMP: 01/15/18 02:32 01/15/18 02:32 ABG POC ABG pH 7.364 (7.35-7.45) 01/15/18 06:05 POC ABG pCO2 51.8 (35-45) H 01/15/18 06:05 POC ABG pO2 73 (80-105) L 01/15/18 06:05 POC ABG HCO3 29.6 01/15/18 06:05 POC ABG Total CO2 31 01/15/18 06:05 POC ABG O2 Sat 94 01/15/18 06:05 Abnormal lab findings: Abnormal Labs 01/15/18 01/15/18 01/15/18 02:32 02:32 06:05 MCV 97 H RDW 13.1 L Lymph % (Auto) 41.5 H [place] % (Auto) 10.9 H [place] # 0.9 H POC ABG pCO2 51.8 H POC ABG pO2 73 L Carbon Dioxide 31 H Glucose 109 H - Diagnostic Findings Chest x-ray: report reviewed, image reviewed (poor study) Assessment and Plan Imp: 1. COPD exac. 2. Asthma exac. 3. Acute respiratory failure, hypoxia 4. Acute bronchitis 5. JAMES 6. Morbid obesity Rec: 1. Levaquin x 5-7 days 2. Decrease Solumedrol 3. Cont. current nebs 4. BIPAP QHS and prn 5. Weight loss 6. Repeat CXR in AM; initial portable film was of poor quality 7. Further plans pending clinical course Plan of care reviewed w/ patient/, they understand/agree Thanks for the consult. Will follow with you.
--- NOTE | 2018-01-17 18:15 | Progress Note ---
Assessment and Plan Assessment and plan: (1) Acute respiratory failure with hypoxia Current Visit: No Status: Acute Plan to address problem: IV Abx IV Solumedrol and Duonebs will begin to taper patient has a long history of asthma and is followed by pulmonary Dr. Zaman. Bipap as necessary We'll consult pulmonary for further assistance. (2) Acute exacerbation of COPD with asthma Current Visit: Yes Status: Acute Plan to address problem: As above (3) Hypertension Current Visit: No Status: Chronic Qualifiers: Hypertension type: essential hypertension Qualified Code(s): I10 - Essential (primary) hypertension Plan to address problem: Cont antihypertensives (4) CHF (congestive heart failure) Current Visit: Yes Status: Chronic Qualifiers: Heart failure type: combined systolic and diastolic Plan to address problem: Cont Lasix Echo ordered and pending (5) Anticoagulation adequate Current Visit: Yes Status: Chronic Plan to address problem: on Xarelto for Pulmonary embolism (6) GERD (gastroesophageal reflux disease) Current Visit: Yes Status: Chronic Qualifiers: Esophagitis presence: without esophagitis Qualified Code(s): K21.9 - Gastro -esophageal reflux disease without esophagitis Plan to address problem: Cont Famotidine (7) DVT prophylaxis Current Visit: Yes Status: Acute Plan to address problem: on lovenox And GI prophylaxis History Interval history: Patient seen and examined still some shortness of breath today. 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 Denies any chest pain Hospitalist Physical - Physical exam Narrative exam: VITAL SIGNS: Reviewed. GENERAL: The patient appeared well nourished and normally developed. Vital signs as documented. HEAD: No signs of head trauma. EYES: Pupils are equal. Extraocular motions intact. EARS: Hearing grossly intact. MOUTH: Oropharynx is normal. NECK: No adenopathy, no JVD. CHEST: Chest with wheezing breath sounds bilaterally. No rales, or rhonchi. CARDIAC: Regular rate and rhythm. S1 and S2, without murmurs, gallops, or rubs. VASCULAR: No Edema. Peripheral pulses normal and equal in all extremities. ABDOMEN: Soft, without detectable tenderness. No sign of distention. No rebound or guarding, and no masses palpated. Bowel Sounds normal. MUSCULOSKELETAL: Good range of motion of all major joints. Extremities without clubbing, cyanosis or edema. NEUROLOGIC EXAM: Alert and oriented x 3. No focal sensory or strength deficits. Speech normal. Follows commands. PSYCHIATRIC: Mood normal. SKIN: No rash or lesions. - Constitutional Vitals: Temp Pulse Resp BP Pulse Ox 97.6 F 59 L 20 150/79 96 01/17/18 12:50 01/17/18 12:50 01/17/18 12:50 01/17/18 12:50 01/17/18 12:50 General appearance: Present: no acute distress, well-nourished Results - Labs CBC & Chem 7: 01/15/18 02:32 01/15/18 02:32 Labs: Laboratory Last Values WBC 8.6 K/mm3 (4.5-11.0) 01/15/18 02:32 RBC 4.40 M/mm3 (3.65-5.03) 01/15/18 02:32 Hgb 14.2 gm/dl (11.8-15.2) 01/15/18 02:32 Hct 42.9 % (35.5-45.6) 01/15/18 02:32 MCV 97 fl (84-94) H 01/15/18 02:32 MCH 32 pg (28-32) 01/15/18 02:32 MCHC 33 % (32-34) 01/15/18 02:32 RDW 13.1 % (13.2-15.2) L 01/15/18 02:32 Plt Count 209 K/mm3 (140-440) 01/15/18 02:32 Lymph % (Auto) 41.5 % (13.4-35.0) H 01/15/18 02:32 [place] % (Auto) 10.9 % (0.0-7.3) H 01/15/18 02:32 Eos % (Auto) 4.3 % (0.0-4.3) 01/15/18 02:32 Baso % (Auto) 0.8 % (0.0-1.8) 01/15/18 02:32 Lymph # 3.6 K/mm3 (1.2-5.4) 01/15/18 02:32 [place] # 0.9 K/mm3 (0.0-0.8) H 01/15/18 02:32 Eos # 0.4 K/mm3 (0.0-0.4) 01/15/18 02:32 Baso # 0.1 K/mm3 (0.0-0.1) 01/15/18 02:32 Seg Neutrophils % 42.5 % (40.0-70.0) 01/15/18 02:32 Seg Neutrophils # 3.7 K/mm3 (1.8-7.7) 01/15/18 02:32 POC ABG pH 7.364 (7.35-7.45) 01/15/18 06:05 POC ABG pCO2 51.8 (35-45) H 01/15/18 06:05 POC ABG pO2 73 (80-105) L 01/15/18 06:05 POC ABG HCO3 29.6 01/15/18 06:05 POC ABG Total CO2 31 01/15/18 06:05 POC ABG O2 Sat 94 01/15/18 06:05 POC ABG Base Excess 4 01/15/18 06:05 FiO2 28 % 01/15/18 06:05 Sodium 144 mmol/L (137-145) 01/15/18 02:32 Potassium 4.1 mmol/L (3.6-5.0) 01/15/18 02:32 Chloride 101.7 mmol/L (98-107) 01/15/18 02:32 Carbon Dioxide 31 mmol/L (22-30) H 01/15/18 02:32 Anion Gap 15 mmol/L 01/15/18 02:32 BUN 16 mg/dL (9-20) 01/15/18 02:32 Creatinine 1.0 mg/dL (0.8-1.5) 01/15/18 02:32 Estimated GFR > 60 ml/min 01/15/18 02:32 BUN/Creatinine Ratio 16 % 01/15/18 02:32 Glucose 109 mg/dL (75-100) H 01/15/18 02:32 Calcium 9.3 mg/dL (8.4-10.2) 01/15/18 02:32 NT-Pro-B Natriuret Pep 37.34 pg/mL (0-900) 01/15/18 02:32
[2018-01-17] MEDS: SINGULAIR PO SCH (21:45)
[2018-01-18] MEDS: ATROVENT IH SCH ×4 (02:09→20:34)
[2018-01-18] MEDS: SOLU-Medrol IV SCH ×3 (05:56→22:04)
[2018-01-18] MEDS: LEVAQUIN 750MG/150ML 750 MG/150 ML BAG IV SCH (10:02)
[2018-01-18] MEDS: PEPCID PO SCH ×2 (10:05→22:04)
[2018-01-18] MEDS: NORMODYNE PO SCH ×2 (10:05→22:09)
[2018-01-18] MEDS: SODIUM CHLORIDE FLUSH SYRINGE 10 ML IV SCH ×2 (10:10→22:05)
[2018-01-18] MEDS: PULMICORT IH SCH ×2 (10:18→20:33)
[2018-01-18] MEDS: BROVANA NEBU IH SCH ×2 (10:19→20:34)
[2018-01-18] MEDS: XARELTO PO SCH (12:05)
--- NOTE | 2018-01-18 12:12 | XRay Report ---
CHEST TWO VIEWS: 01/18/18 CLINICAL: Shortness of breath. COMPARISON: 01/15/18 and 06/19/16 FINDINGS: Normal heart and pulmonary vasculature. The lungs are normally expanded and clear. Chronic scarring at the left lung base is unchanged compared to prior exams.Suspect remote fractures of the left sixth and seventh ribs with bridging callus. IMPRESSION: No acute cardiopulmonary process.
--- NOTE | 2018-01-18 13:10 | Progress Note ---
Assessment and Plan Assessment and plan: (1) Acute respiratory failure with hypoxia Current Visit: No Status: Acute Plan to address problem: IV Abx IV Solumedrol and Duonebs will begin to taper patient has a long history of asthma and is followed by pulmonary Dr. Zaman. Bipap as necessary pulmonary input noted chest xray with no acute pathology Moni IV steroids (2) Acute exacerbation of COPD with asthma Current Visit: Yes Status: Acute Plan to address problem: As above (3) Hypertension Current Visit: No Status: Chronic Qualifiers: Hypertension type: essential hypertension Qualified Code(s): I10 - Essential (primary) hypertension Plan to address problem: Cont antihypertensives (4) CHF (congestive heart failure) Current Visit: Yes Status: Chronic Qualifiers: Heart failure type: combined systolic and diastolic Plan to address problem: Cont Lasix Echo preseved EF (5) Anticoagulation adequate Current Visit: Yes Status: Chronic Plan to address problem: on Xarelto for Pulmonary embolism (6) GERD (gastroesophageal reflux disease) Current Visit: Yes Status: Chronic Qualifiers: Esophagitis presence: without esophagitis Qualified Code(s): K21.9 - Gastro -esophageal reflux disease without esophagitis Plan to address problem: Cont Famotidine (7) DVT prophylaxis Current Visit: Yes Status: Acute Plan to address problem: on lovenox And GI prophylaxis Disposition: Discharge in am if continued improvement OUTPATIENT FOLLOW UP WITH PULMONARY History Interval history: Patient seen and examined clinically improving Hospitalist Physical - Physical exam Narrative exam: VITAL SIGNS: Reviewed. GENERAL: The patient appeared well nourished and normally developed. Vital signs as documented. HEAD: No signs of head trauma. EYES: Pupils are equal. Extraocular motions intact. EARS: Hearing grossly intact. MOUTH: Oropharynx is normal. NECK: No adenopathy, no JVD. CHEST: Chest with wheezing breath sounds bilaterally. less today. No rales, or rhonchi. CARDIAC: Regular rate and rhythm. S1 and S2, without murmurs, gallops, or rubs. VASCULAR: No Edema. Peripheral pulses normal and equal in all extremities. ABDOMEN: Soft, without detectable tenderness. No sign of distention. No rebound or guarding, and no masses palpated. Bowel Sounds normal. MUSCULOSKELETAL: Good range of motion of all major joints. Extremities without clubbing, cyanosis or edema. NEUROLOGIC EXAM: Alert and oriented x 3. No focal sensory or strength deficits. Speech normal. Follows commands. PSYCHIATRIC: Mood normal. SKIN: No rash or lesions. - Constitutional Vitals: Temp Pulse Resp BP Pulse Ox 97.7 F 73 20 123/76 97 01/18/18 05:12 01/18/18 10:30 01/18/18 10:30 01/18/18 10:05 01/18/18 10:19 General appearance: Present: no acute distress, well-nourished Results - Labs CBC & Chem 7: 01/15/18 02:32 01/15/18 02:32 Labs: Laboratory Last Values WBC 8.6 K/mm3 (4.5-11.0) 01/15/18 02:32 RBC 4.40 M/mm3 (3.65-5.03) 01/15/18 02:32 Hgb 14.2 gm/dl (11.8-15.2) 01/15/18 02:32 Hct 42.9 % (35.5-45.6) 01/15/18 02:32 MCV 97 fl (84-94) H 01/15/18 02:32 MCH 32 pg (28-32) 01/15/18 02:32 MCHC 33 % (32-34) 01/15/18 02:32 RDW 13.1 % (13.2-15.2) L 01/15/18 02:32 Plt Count 209 K/mm3 (140-440) 01/15/18 02:32 Lymph % (Auto) 41.5 % (13.4-35.0) H 01/15/18 02:32 [place] % (Auto) 10.9 % (0.0-7.3) H 01/15/18 02:32 Eos % (Auto) 4.3 % (0.0-4.3) 01/15/18 02:32 Baso % (Auto) 0.8 % (0.0-1.8) 01/15/18 02:32 Lymph # 3.6 K/mm3 (1.2-5.4) 01/15/18 02:32 [place] # 0.9 K/mm3 (0.0-0.8) H 01/15/18 02:32 Eos # 0.4 K/mm3 (0.0-0.4) 01/15/18 02:32 Baso # 0.1 K/mm3 (0.0-0.1) 01/15/18 02:32 Seg Neutrophils % 42.5 % (40.0-70.0) 01/15/18 02:32 Seg Neutrophils # 3.7 K/mm3 (1.8-7.7) 01/15/18 02:32 POC ABG pH 7.364 (7.35-7.45) 01/15/18 06:05 POC ABG pCO2 51.8 (35-45) H 01/15/18 06:05 POC ABG pO2 73 (80-105) L 01/15/18 06:05 POC ABG HCO3 29.6 01/15/18 06:05 POC ABG Total CO2 31 01/15/18 06:05 POC ABG O2 Sat 94 01/15/18 06:05 POC ABG Base Excess 4 01/15/18 06:05 FiO2 28 % 01/15/18 06:05 Sodium 144 mmol/L (137-145) 01/15/18 02:32 Potassium 4.1 mmol/L (3.6-5.0) 01/15/18 02:32 Chloride 101.7 mmol/L (98-107) 01/15/18 02:32 Carbon Dioxide 31 mmol/L (22-30) H 01/15/18 02:32 Anion Gap 15 mmol/L 01/15/18 02:32 BUN 16 mg/dL (9-20) 01/15/18 02:32 Creatinine 1.0 mg/dL (0.8-1.5) 01/15/18 02:32 Estimated GFR > 60 ml/min 01/15/18 02:32 BUN/Creatinine Ratio 16 % 01/15/18 02:32 Glucose 109 mg/dL (75-100) H 01/15/18 02:32 Calcium 9.3 mg/dL (8.4-10.2) 01/15/18 02:32 NT-Pro-B Natriuret Pep 37.34 pg/mL (0-900) 01/15/18 02:32
--- NOTE | 2018-01-18 13:46 | Progress Note ---
Assessment and Plan Imp: 1. COPD exac. 2. Asthma exac. 3. Acute respiratory failure, hypoxia 4. Acute bronchitis 5. JAMES 6. Morbid obesity Rec: 1. Levaquin x 5-7 days 2. Decrease Solumedrol again; Prednisone taper at d/c 3. Cont. current nebs 4. Resume his home CPAP unit at d/c 5. Weight loss 6. CXR -> clear lungs except scarring at L costophrenic angle which is unchanged from prior films 7. Agree w/ possible d/c in 24 hours Plan of care reviewed w/ patient, he understands/agrees Subjective Date of service: 01/18/18 Principal diagnosis: Resp failure and Copd exacerbation Interval history: No events. Awake, alert. SOB, wheezing, cough all much improved. On RA. No new complaints. Active Medications Acetaminophen (Tylenol) 650 mg PO Q4H PRN PRN Reason: Pain MILD(1-3)/Fever >100.5/SIMMONS Albuterol (Proventil) 2.5 mg IH Q4H PRN PRN Reason: Wheezing Last Admin: 01/16/18 13:45 Dose: 2.5 mg Arformoterol Tartrate (Brovana Nebu) 15 mcg IH Q12HRT [facility] Last Admin: 01/18/18 10:19 Dose: 15 mcg Budesonide (Pulmicort) 1 mg IH Q12HRT [facility] Last Admin: 01/18/18 10:18 Dose: 1 mg Famotidine (Pepcid) 20 mg PO BID [facility] Last Admin: 01/18/18 10:05 Dose: 20 mg Ipratropium Wallace (Atrovent) 0.5 mg IH Q6HRT [facility] Last Admin: 01/18/18 13:05 Dose: 0.5 mg Labetalol HCl (Normodyne) 200 mg PO BID [facility] Last Admin: 01/18/18 10:05 Dose: 200 mg Levofloxacin (Levaquin) 750 mg PO DAILY [facility] Stop: 01/22/18 10:01 Methylprednisolone Sodium Succinate (Solu-Medrol) 40 mg IV Q12HR [facility] Montelukast Sodium (Singulair) 10 mg PO QHS [facility] Last Admin: 01/17/18 21:45 Dose: 10 mg Ondansetron HCl (Zofran) 4 mg IV Q8H PRN PRN Reason: Nausea And Vomiting Ondansetron HCl (Zofran Odt) 4 mg PO Q8HR PRN PRN Reason: Nausea And Vomiting Rivaroxaban (Xarelto) 20 mg PO QDAY [facility]; Protocol Last Admin: 01/18/18 12:05 Dose: 20 mg Sodium Chloride (Sodium Chloride Flush Syringe 10 Ml) 10 ml IV BID [facility] Last Admin: 01/18/18 10:10 Dose: 10 ml Sodium Chloride (Sodium Chloride Flush Syringe 10 Ml) 10 ml IV PRN PRN PRN Reason: LINE FLUSH Tramadol HCl (Ultram) 50 mg PO Q4HR PRN PRN Reason: Pain Objective Vital Signs - 12hr 01/18/18 01/18/18 01/18/18 05:12 10:05 10:19 Temperature 97.7 F Pulse Rate 56 L Pulse Rate [ 71 Anterior Bilateral Throughout] Respiratory 20 Rate Respiratory 20 Rate [Anterior Bilateral Throughout] Blood Pressure 140/76 123/76 O2 Sat by Pulse 97 97 Oximetry 01/18/18 10:30 Temperature Pulse Rate Pulse Rate [ 73 Anterior Bilateral Throughout] Respiratory Rate Respiratory 20 Rate [Anterior Bilateral Throughout] Blood Pressure O2 Sat by Pulse Oximetry Constitutional: no acute distress, alert Eyes: non-icteric ENT: oropharynx moist Neck: supple Effort: normal Ascultation: Bilateral: diminished breath sounds (due to obesity) Cardiovascular: regular rate and rhythm (no mrg) Gastrointestinal: normoactive bowel sounds, soft, non-tender, non-distended Integumentary: normal Extremities: no cyanosis, no edema, pink and warm Neurologic: normal mental status, non-focal exam, pupils equal and round, CN II- XII normal Psychiatric: mood appropriate, affect normal CBC and BMP: 01/15/18 02:32 01/15/18 02:32 ABG, PT/INR, D-dimer: ABG POC ABG pH 7.364 (7.35-7.45) 01/15/18 06:05 POC ABG pCO2 51.8 (35-45) H 01/15/18 06:05 POC ABG pO2 73 (80-105) L 01/15/18 06:05 POC ABG HCO3 29.6 01/15/18 06:05 POC ABG Total CO2 31 01/15/18 06:05 POC ABG O2 Sat 94 01/15/18 06:05 Abnormal lab findings: Abnormal Labs 01/15/18 01/15/18 01/15/18 02:32 02:32 06:05 MCV 97 H RDW 13.1 L Lymph % (Auto) 41.5 H Mercer % (Auto) 10.9 H Mercer # 0.9 H POC ABG pCO2 51.8 H POC ABG pO2 73 L Carbon Dioxide 31 H Glucose 109 H Chest x-ray: report reviewed, image reviewed
[2018-01-18] MEDS ORDERED: SOLU-Medrol IV SCH ×2 (14:00)
[2018-01-18] MEDS: SINGULAIR PO SCH (22:04)
[2018-01-19] MEDS: ATROVENT IH SCH ×3 (01:13→13:28)
[2018-01-19] MEDS: PULMICORT IH SCH (08:13)
[2018-01-19] MEDS: BROVANA NEBU IH SCH (08:14)
[2018-01-19] MEDS ORDERED: LEVAQUIN PO SCH (10:00)
[2018-01-19] MEDS: SOLU-Medrol IV SCH (10:22)
[2018-01-19] MEDS: PEPCID PO SCH (10:23)
[2018-01-19] MEDS: NORMODYNE PO SCH (10:23)
[2018-01-19 10:24] VITALS: BP 140/80
[2018-01-19] MEDS: XARELTO PO SCH (12:04)
--- NOTE | 2018-01-19 16:17 | Discharge Summary ---
Providers - Providers Date of Admission: 01/15/18 06:59 Date of discharge: 01/19/18 Attending physician: JESSICA CARDENAS 01/17/18 12:28 Consult to Physician [CONS] Routine Comment: Consulting Provider: STAN ODONNELL Physician Instructions: Reason For Exam: COPD/ASTHMA EXACERBATION Primary care physician: HITCHER Hospitalization Reason for admission: 1. Acute COPD/asthma exac. Condition: Stable Hospital course: Final diagnoses 1. COPD/Asthma exac. 2. Acute respiratory failure, hypoxia 3. Acute bronchitis 4. Hypertensive emergency with systolic blood pressure more than 180 5. SIRS secondary to noninfectious process 6. JAMES 7. Morbid obesity with BMI of 43.3 Patient was admitted and placed on IV steroids in addition to nebulizer breathing treatments and antibiotic. He also received antihypertensives for blood pressure control. Subsequently, he improved clinically and he was then deemed stable for discharge with clinic follow-up. Disposition: VT-30 STILL A PATIENT Time spent for discharge: 35 MINUTES Core Measure Documentation - Palliative Care Palliative Care/ Comfort Measures: Not Applicable - Core Measures Any of the following diagnoses?: none Exam - Constitutional Vitals: Temp Pulse Resp BP Pulse Ox 98.7 F 68 20 140/80 98 01/19/18 05:23 01/19/18 10:23 01/19/18 08:25 01/19/18 10:23 01/19/18 08:14 General appearance: Present: no acute distress, well-nourished - EENT Eyes: Present: PERRL, EOM intact ENT: hearing intact, clear oral mucosa - Neck Neck: Present: supple, normal ROM - Respiratory Respiratory effort: normal Respiratory: bilateral: CTA - Cardiovascular Rhythm: regular Heart Sounds: Present: S1 & S2. Absent: rub, click - Extremities Extremities: pulses symmetrical, No edema Peripheral Pulses: within normal limits - Abdominal General gastrointestinal: Present: soft, non-tender, non-distended, normal bowel sounds Male genitourinary: Present: deferred - Integumentary Integumentary: Present: clear, warm, dry - Musculoskeletal Musculoskeletal: gait normal, strength equal bilaterally - Neurologic Neurologic: CNII-XII intact, moves all extremities Plan Activity: no restrictions Weight Bearing Status: Weight Bear as Tolerated Diet: low salt Follow up with: PRIMARY CARE, [Primary Care Provider] - 3-5 Days Prescriptions: amLODIPine [Norvasc] 10 mg PO DAILY #30 tab levoFLOXacin [Levaquin TAB] 750 mg PO DAILY #3 tablet methylPREDNISolone [Medrol Dose Jf] 4 mg PO DAILY #21 pack
== END 2018-01-19 14:00 | disposition home or self-care (01) | DRG 189 ==
LOC: ED 01:56 → 4A 06:59 → 3A 01-16 15:14
PROVIDERS: ADMIT Internal Medicine; ATTEND Internal Medicine
PROC: 4A033R1 Measurement of Arterial Saturation, Peripheral, Percutaneous Approach (ICD-10-PCS; principal; 2018-01-15)
PROC: 5A09357 Assistance with Respiratory Ventilation, Less than 24 Consecutive Hours, Continuous Positive Airway Pressure (ICD-10-PCS; 2018-01-15)
PROC: 5A09357 Assistance with Respiratory Ventilation, Less than 24 Consecutive Hours, Continuous Positive Airway Pressure (ICD-10-PCS; 2018-01-17)
DX: J96.01 Acute respiratory failure with hypoxia (principal); J44.1 Chronic obstructive pulmonary disease with (acute) exacerbation; J45.901 Unspecified asthma with (acute) exacerbation; I50.42 Chronic combined systolic (congestive) and diastolic (congestive) heart failure; Z68.41 Body mass index [BMI] 40.0-44.9, adult; I16.1 Hypertensive emergency; R65.10 Systemic inflammatory response syndrome (SIRS) of non-infectious origin without acute organ dysfunction; J44.0 Chronic obstructive pulmonary disease with (acute) lower respiratory infection; Z88.3 Allergy status to other anti-infective agents; Z91.048 Other nonmedicinal substance allergy status; I11.0 Hypertensive heart disease with heart failure; Z79.899 Other long term (current) drug therapy; Z79.82 Long term (current) use of aspirin; Z79.01 Long term (current) use of anticoagulants; K21.9 Gastro-esophageal reflux disease without esophagitis; J20.9 Acute bronchitis, unspecified; E66.01 Morbid (severe) obesity due to excess calories; Z71.3 Dietary counseling and surveillance; G47.33 Obstructive sleep apnea (adult) (pediatric)
CPT/HCPCS: 36415; 71045; 71046; 80048; 82803; 83880; 85025; 93306; 94640; 94644; 94660; 94760; 96365; 96375; J1956; J2060; J2920; J2930; J3475

== ENCOUNTER 2018-05-18 21:27 | Emergency (ER) | payer OTHER ==
[2018-05-18] MEDS ORDERED: DUONEB *Not for PRN Use IH ONE (21:44)
[2018-05-18] MEDS ORDERED: SOLU-Medrol IV ONE (21:53)
--- NOTE | 2018-05-18 22:03 | Emergency Department Report ---
HPI - General Chief Complaint: Dyspnea/Respdistress Time Seen by Provider: 05/18/18 21:47 - HPI HPI: 62 year-old male presents to the emergency department with complaint of some shortness of breath, wheezing and dry cough that has been go ing on since last night. He has been using his rescue inhaler and earlier used a nebulizer treatment without much relief. He denies any chest pain, lower extremity swelling, fever, nausea, vomiting. He has a past medical history of non-oxygen dependent COPD, asthma, previous DVT, hypertension. He is anticoagulated on Xarelto and has not been missing any doses. He recently finished a steroid taper from his hydrometer tester, Dr. Zaman. His primary care physician is Dr. Snyder. No recent travel or sick contacts at home. ED Past Medical Hx - Past Medical History Hx Hypertension: Yes Hx Congestive Heart Failure: No Hx Diabetes: No Hx Headaches / Migraines: No Hx Seizures: No Hx Asthma: Yes Hx COPD: Yes Hx Dementia: No Hx HIV: No - Surgical History Additional Surgical History: 2000- lung - Social History Smoking Status: Unknown if ever smoked - Medications Home Medications: Home Medications Medication Instructions Recorded Confirmed Last Taken Type Aclidinium [place] [Tudorza 2 puff IH BID 01/12/16 05/18/18 01/15/18 History Pressair] Budesoni/Formotero 160-4.5(Nf) 2 puff IH BID 01/12/16 01/15/18 01/15/18 History [Symbicort 160-4.5 (Nf)] Aspirin [Adult Low Dose Aspirin EC] 81 mg PO QAM 01/15/18 05/18/18 01/15/18 History Furosemide [Lasix TAB] 40 mg PO QDAY 01/15/18 05/18/18 01/15/18 History Potassium Chloride [Klor-Con 10] 10 meq PO QDAY 01/15/18 05/18/18 01/15/18 History Rivaroxaban [Xarelto] 20 mg PO QDAY 01/15/18 05/18/18 01/15/18 History Albuterol Sulfate [Ventolin HFA] 90 IH PRN PRN 05/18/18 Unknown History Fluticasone/Vilanterol [Breo 200 mcg IH BID 05/18/18 05/18/18 Unknown History Ellipta 200-25 Mcg INH] amLODIPine [Norvasc] 10 mg PO HS 05/18/18 05/18/18 Unknown History predniSONE [Deltasone] 20 mg PO BID #10 tab 05/18/18 Unknown Rx ED Review of Systems ROS: Stated complaint: SOUMYA/ASTHMA Other details as noted in HPI Comment: All other systems reviewed and negative Constitutional: denies: chills, fever Eyes: denies: eye pain, vision change ENT: denies: ear pain, throat pain Respiratory: cough, shortness of breath, wheezing Cardiovascular: denies: chest pain, edema Gastrointestinal: denies: abdominal pain, vomiting Genitourinary: denies: dysuria, frequency Musculoskeletal: denies: back pain, arthralgia Skin: denies: rash, lesions Neurological: denies: headache, weakness Physical Exam - Physical Exam Vital Signs: Vital Signs 05/18/18 05/18/18 05/18/18 21:31 21:38 21:40 Temperature 98.8 F 98.8 F Pulse Rate 88 92 H Pulse Rate [ 77 Posterior Bilateral Throughout] Respiratory 20 20 Rate Respiratory 24 Rate [Posterior Bilateral Throughout] Blood Pressure 143/118 143/118 O2 Sat by Pulse 97 97 Oximetry 05/18/18 21:50 Temperature Pulse Rate Pulse Rate [ 80 Posterior Bilateral Throughout] Respiratory Rate Respiratory 20 Rate [Posterior Bilateral Throughout] Blood Pressure O2 Sat by Pulse Oximetry Physical Exam: GENERAL: The patient is well-developed well-nourished. HEENT: Normocephalic. Atraumatic. Patient has moist mucous membranes. EYES: Extraocular motions are intact. NECK: Supple. Trachea is midline. CHEST/LUNGS: Mild expiratory wheezing. A dry cough heard during examination. No tachypnea or accessory muscle use. There is no respiratory distress noted. HEART/CARDIOVASCULAR: Regular. There is no tachycardia. There is no obvious murmur. ABDOMEN: Abdomen is soft, nontender. Patient has normal bowel sounds. Obese habitus. SKIN: Skin is warm and dry. NEURO: The patient is awake, alert, and oriented. The patient is cooperative. The patient has no focal neurologic deficits. The patient has normal speech. MUSCULOSKELETAL: There is no tenderness or deformity. There is no evidence of acute injury. ED Course Vital Signs 05/18/18 05/18/18 05/18/18 21:31 21:38 21:40 Temperature 98.8 F 98.8 F Pulse Rate 88 92 H Pulse Rate [ 77 Posterior Bilateral Throughout] Respiratory 20 20 Rate Respiratory 24 Rate [Posterior Bilateral Throughout] Blood Pressure 143/118 143/118 O2 Sat by Pulse 97 97 Oximetry 05/18/18 21:50 Temperature Pulse Rate Pulse Rate [ 80 Posterior Bilateral Throughout] Respiratory Rate Respiratory 20 Rate [Posterior Bilateral Throughout] Blood Pressure O2 Sat by Pulse Oximetry ED Medical Decision Making - Lab Data Result diagrams: 05/18/18 22:37 05/18/18 22:37 - EKG Data -: EKG Interpreted by Me EKG shows normal: sinus rhythm, axis, intervals, QRS complexes (right bundle- branch block), ST-T waves Rate: normal - EKG Data When compared to previous EKG there are: previous EKG unavailable Interpretation: other (RBBB) - Radiology Data Radiology results: image reviewed interpreted by me: Chest x-ray does not show any pneumothorax, pleural effusion, pneumonia or obvious focal consolidation. - Medical Decision Making Patient presents with about a 24-hour history of some shortness of breath, wheezing and coughing consistent with his asthma and/or COPD. EKG did not show any signs of ST elevation [place]. Chest x-ray did not show any pleural effusions, pneumonia, pneumothorax, focal consolidation, or any other acute process. Patient's labs were unremarkable including CBC, metabolic panel and a proBNP. Patient was given IV Solu-Medrol and some breathing treatments. He was reevaluated multiple times over multiple hours and says that he is feeling greatly improved. The patient has been able to move around within the emergency department without any return of any dyspnea or any acute distress. Vital signs stable throughout his ED course. The patient has good follow-up with primary care and pulmonology. He will be discharged home with a 5 day course of steroids. He will return to the ER with any worsening of his symptoms or any acute distress. - Differential Diagnosis asthma, COPD, bronchitis, pneumonia, CHF Critical Care Time: No Critical care attestation.: If time is entered above; I have spent that time in minutes in the direct care of this critically ill patient, excluding procedure time. ED Disposition Clinical Impression: Acute exacerbation of COPD with asthma Disposition: TO HOME OR SELFCARE Is pt being admited?: No Condition: Stable Instructions: Asthma (ED), Chronic Obstructive Pulmonary Disease (ED) Additional Instructions: Please follow-up with your primary care physician and hydrometer tester in the next few days. Return to the emergency Department with any worsening of your symptoms or any acute distress. Prescriptions: predniSONE [Deltasone] 20 mg PO BID #10 tab Referrals: Mastic Sprayer and PCP, Your [Other] - 2-3 Days Time of Disposition: 23:38
--- NOTE | 2018-05-18 22:16 | XRay Report ---
FINAL REPORT EXAM: XR CHEST ROUTINE 2V HISTORY: SOB COMPARISON: January 15, 2018. FINDINGS:: Frontal and lateral views of the chest obtained. Cardiac silhouette is within normal limi ts. Mild blunting left costophrenic angle concerning for small effusion versus pleural thickening. No ngs otherwise clear. No pneumothorax. IMPRESSION:: Blunting of left costophrenic angle concerning for small effusion versus pleural thicke heather. Remaining lungs are clear.
[2018-05-18 22:50] LABS: Basophils # (Auto) 0.1 K/mm3 (0.0-0.1); Basophils % (Auto) 1.2 % (0.0-1.8); Eosinophils # (Auto) 0.3 K/mm3 (0.0-0.4); Hematocrit 44.5 % (35.5-45.6); Hemoglobin 14.8 gm/dl (11.8-15.2); Lymphocytes # (Auto) 3.4 K/mm3 (1.2-5.4); Mean Corpuscular HGB Conc 33 % (32-34); Mean Corpuscular Volume 96 fl (84-94); Monocytes # (Auto) 0.8 K/mm3 (0.0-0.8); Monocytes % (Auto) 9.7 % (0.0-7.3); Platelet Count 200 K/mm3 (140-440); Red Blood Count 4.65 M/mm3 (3.65-5.03); Red Cell Distribution Width 13.1 % (13.2-15.2)
[2018-05-18 23:17] LABS: BUN/Creatinine Ratio 19; Blood Urea Nitrogen 17 mg/dL (9-20); Calcium 8.9 mg/dL (8.4-10.2); Hemolysis Index 32
[2018-05-19 14:45] VITALS: BP 157/76
== END 2018-05-19 00:01 | disposition home or self-care (01) ==
LOC: ED 21:27
DX: J44.1 Chronic obstructive pulmonary disease with (acute) exacerbation (principal); I10 Essential (primary) hypertension; Z91.041 Radiographic dye allergy status
CPT/HCPCS: 36415; 71046; 80048; 83880; 85025; 93005; 93010; 94640; 96374; 99284; J2930

== ENCOUNTER 2018-06-11 20:20 | Emergency (ER) | payer OTHER ==
[2018-06-11] MEDS ORDERED: PROVENTIL IH ONE ×3 (20:40→21:34)
[2018-06-11] MEDS ORDERED: ATROVENT IH ONE ×3 (20:40→21:34)
[2018-06-11] MEDS ORDERED: SOLU-Medrol ONE (20:51)
[2018-06-11] MEDS ORDERED: SOLU-Medrol IV ONE (20:54)
--- NOTE | 2018-06-11 21:36 | XRay Report ---
FINAL REPORT EXAM: XR CHEST 1V AP HISTORY: Dyspnea TECHNIQUE: AP portable view of the chest PRIORS: CXR 05/18/2018 FINDINGS: Lines, tubes, and devices: N/A Lungs and pleura: Trachea is normal in position. Tiny bilateral pleural effusions are noted. Cardiomediastinal silhouette: Cardiac and mediastinal silhouettes are unremarkable. Other: Bony structures are intact. IMPRESSION: Tiny pleural effusions
[2018-06-11 21:44] LABS: Basophils % (Auto) 0.5 % (0.0-1.8); Eosinophils # (Auto) 0.3 K/mm3 (0.0-0.4); Eosinophils % (Auto) 3.6 % (0.0-4.3); Hematocrit 38.7 % (35.5-45.6); Lymphocytes # (Auto) 2.7 K/mm3 (1.2-5.4); Lymphocytes % (Auto) 29.4 % (13.4-35.0); Mean Corpuscular HGB Conc 34 % (32-34); Mean Corpuscular Volume 96 fl (84-94); Monocytes # (Auto) 0.7 K/mm3 (0.0-0.8); Monocytes % (Auto) 7.7 % (0.0-7.3); Platelet Count 191 K/mm3 (140-440); Red Blood Count 4.04 M/mm3 (3.65-5.03); Red Cell Distribution Width 13.7 % (13.2-15.2)
[2018-06-11 22:07] LABS: Alanine Aminotransferase 23 units/L (7-56); BUN/Creatinine Ratio 14; Blood Urea Nitrogen 13 mg/dL (9-20); Calcium 8.8 mg/dL (8.4-10.2); Hemolysis Index 4
[2018-06-11 23:42] VITALS: BP 144/75
--- NOTE | 2018-06-12 00:09 | Emergency Department Report ---
ED General Adult HPI - General Chief complaint: Dyspnea/Respdistress Stated complaint: WHEEZING,CHEST PAIN Time Seen by Provider: 06/11/18 21:06 Source: patient, family, RN notes reviewed, old records reviewed Mode of arrival: Ambulatory Limitations: No Limitations - History of Present Illness Initial comments: Primary care Dr.: Dr. Prather Pulmonology: Dr. Austyn Das Past medical history: Hypertension, dependent edema, COPD, obesity, distant history of pulmonary embolism, currently on xarelto This is a 62-year-old gentleman, presenting to the emergency room today with a complaint of cough, wheezing, mucus production, shortness of breath, wheezing. Symptoms are painless, and patient reports compliance with all his medications. His symptoms are typically exacerbated by cough, and with seasonal allergies. He denies posterior leg pain, posterior leg swelling, endorses compliance with his anticoagulation, denies recent trips greater than 4 hours or surgeries. He denies severe headache, neck pain, chest pain, irritative/obstructive urinary symptoms, hematemesis, bright red blood per rectum. In the emergency room, the patient was treated with albuterol, Atrovent steroid, and reportedly felt much improved. -: Gradual Radiation: non-radiation Severity scale (0 -10): 6 Consistency: constant Improves with: medication, rest Worsens with: movement Associated Symptoms: cough, shortness of breath - Related Data Home Medications Medication Instructions Recorded Confirmed Last Taken Aclidinium [place] [Tudorza 2 puff IH BID 01/12/16 05/18/18 01/15/18 Pressair] Budesoni/Formotero 160-4.5(Nf) 2 puff IH BID 01/12/16 01/15/18 01/15/18 [Symbicort 160-4.5 (Nf)] Aspirin [Adult Low Dose Aspirin EC] 81 mg PO QAM 01/15/18 05/18/18 01/15/18 Furosemide [Lasix TAB] 40 mg PO QDAY 01/15/18 05/18/18 01/15/18 Potassium Chloride [Klor-Con 10] 10 meq PO QDAY 01/15/18 05/18/18 01/15/18 Rivaroxaban [Xarelto] 20 mg PO QDAY 01/15/18 05/18/18 01/15/18 Albuterol Sulfate [Ventolin HFA] 90 IH PRN PRN 05/18/18 Unknown Fluticasone/Vilanterol [Breo 200 mcg IH BID 05/18/18 05/18/18 Unknown Ellipta 200-25 Mcg INH] amLODIPine [Norvasc] 10 mg PO HS 05/18/18 05/18/18 Unknown Previous Rx's Medication Instructions Recorded Last Taken Type predniSONE [Deltasone] 20 mg PO BID #10 tab 05/18/18 Unknown Rx Albuterol Sulfate [Albuterol 0.63% 0.63 mg IH Q4HR PRN #2 ml 06/12/18 Unknown Rx NEBS] Albuterol Sulfate [Proair 90 mcg IH Q4HR PRN #2 aer.pow.ba 06/12/18 Unknown Rx Respiclick] Furosemide [Lasix] 20 mg PO QHS #7 tablet 06/12/18 Unknown Rx Ipratropium [place] [Atrovent Hfa] 12.9 gm IH Q4HR PRN #1 hfa.aer.ad 06/12/18 Unknown Rx methylPREDNISolone [Medrol] 4 mg PO QDAY #1 tab.ds.pk 06/12/18 Unknown Rx Allergies Allergy/AdvReac Type Severity Reaction Status Date / Time Iodinated Contrast- Oral and Allergy Swelling Verified 02/28/16 03:21 IV Dye [Iodinated Contrast Media - IV Dye] ED Review of Systems ROS: Stated complaint: WHEEZING,CHEST PAIN Other details as noted in HPI Constitutional: malaise, weakness Eyes: denies: vision change ENT: congestion. denies: epistaxis Respiratory: cough, shortness of breath, wheezing Cardiovascular: denies: chest pain Gastrointestinal: denies: abdominal pain, nausea, vomiting, hematemesis, melena, hematochezia Genitourinary: denies: dysuria Musculoskeletal: denies: back pain, arthralgia Skin: denies: lesions Neurological: weakness Psychiatric: anxiety ED Past Medical Hx - Past Medical History Hx Hypertension: Yes Hx Congestive Heart Failure: No Hx Diabetes: No Hx Headaches / Migraines: No Hx Seizures: No Hx Asthma: Yes Hx COPD: Yes Hx Dementia: No Hx HIV: No - Surgical History Additional Surgical History: 2000- lung - Social History Smoking Status: Never Smoker Substance Use Type: None - Medications Home Medications: Home Medications Medication Instructions Recorded Confirmed Last Taken Type Aclidinium [place] [Tudorza 2 puff IH BID 09/28/16 02/02/19 10/02/18 History Pressair] Budesoni/Formotero 160-4.5(Nf) 2 puff IH BID 01/12/16 01/15/18 01/15/18 History [Symbicort 160-4.5 (Nf)] Aspirin [Adult Low Dose Aspirin EC] 81 mg PO QAM 01/15/18 05/18/18 01/15/18 History Furosemide [Lasix TAB] 40 mg PO QDAY 01/15/18 05/18/18 01/15/18 History Potassium Chloride [Klor-Con 10] 10 meq PO QDAY 01/15/18 05/18/18 01/15/18 History Rivaroxaban [Xarelto] 20 mg PO QDAY 01/15/18 05/18/18 01/15/18 History Albuterol Sulfate [Ventolin HFA] 90 IH PRN PRN 05/18/18 Unknown History Fluticasone/Vilanterol [Breo 200 mcg IH BID 05/18/18 05/18/18 Unknown History Ellipta 200-25 Mcg INH] amLODIPine [Norvasc] 10 mg PO HS 05/18/18 05/18/18 Unknown History predniSONE [Deltasone] 20 mg PO BID #10 tab 05/18/18 Unknown Rx Albuterol Sulfate [Albuterol 0.63% 0.63 mg IH Q4HR PRN #2 ml 06/12/18 Unknown Rx NEBS] Albuterol Sulfate [Proair 90 mcg IH Q4HR PRN #2 aer.pow.ba 06/12/18 Unknown Rx Respiclick] Furosemide [Lasix] 20 mg PO QHS #7 tablet 06/12/18 Unknown Rx Ipratropium [place] [Atrovent Hfa] 12.9 gm IH Q4HR PRN #1 hfa.aer.ad 06/12/18 Unknown Rx methylPREDNISolone [Medrol] 4 mg PO QDAY #1 tab.ds.pk 06/12/18 Unknown Rx ED Physical Exam - General Limitations: No Limitations General appearance: alert, anxious, in distress, obese - Head Head exam: Present: atraumatic, normocephalic - Eye Eye exam: Present: normal appearance, EOMI. Absent: nystagmus - ENT ENT exam: Present: normal exam, normal orophraynx, mucous membranes moist, n ormal external ear exam - Neck Neck exam: Present: normal inspection, full ROM. Absent: tenderness, meningismus - Respiratory Respiratory exam: Present: respiratory distress, wheezes, rhonchi - Cardiovascular Cardiovascular Exam: Present: regular rate, normal rhythm, normal heart sounds. Absent: bradycardia, tachycardia, irregular rhythm, systolic murmur, diastolic murmur, rubs, gallop - GI/Abdominal GI/Abdominal exam: Present: soft. Absent: distended, tenderness, guarding, rebound, rigid, pulsatile mass - Rectal Rectal exam: Present: deferred - Extremities Exam Extremities exam: Present: normal inspection, full ROM, pedal edema ( 1+ edema), other (2+ pulses noted in the bilateral upper, lower extremities. Compartments soft. No long bony tenderness. The pelvis is stable.). Absent: calf tenderness - Back Exam Back exam: Present: normal inspection, full ROM. Absent: tenderness, CVA tenderness (R), paraspinal tenderness, vertebral tenderness - Neurological Exam Neurological exam: Present: alert, oriented X3, CN II-XII intact, normal gait, other (Extraocular movements intact. Tongue midline. No facial droop. Facial sensation intact to light touch in the V1, V2, V3 distribution bilaterally. 5 and 5 strength in 4 extremities.. Sensation is intact to light touch in 4 extremities.). Absent: motor sensory deficit - Psychiatric Psychiatric exam: Present: anxious - Skin Skin exam: Present: warm, dry, intact, normal color. Absent: rash ED Course Vital Signs 06/11/18 06/11/18 06/11/18 20:27 20:35 20:45 Pulse Rate 97 H 100 H 92 H Pulse Rate [ Anterior Bilateral Throughout] Pulse Rate [ Posterior Bilateral Throughout] Respiratory 26 H 24 16 Rate Respiratory Rate [Anterior Bilateral Throughout] Respiratory Rate [Posterior Bilateral Throughout] Blood Pressure 131/73 Blood Pressure 158/80 [Right] O2 Sat by Pulse 94 97 Oximetry 06/11/18 06/11/18 06/11/18 21:01 21:15 21:31 Pulse Rate 92 H 89 97 H Pulse Rate [ 85 Anterior Bilateral Throughout] Pulse Rate [ Posterior Bilateral Throughout] Respiratory 18 14 19 Rate Respiratory 20 Rate [Anterior Bilateral Throughout] Respiratory Rate [Posterior Bilateral Throughout] Blood Pressure 126/81 144/76 141/85 Blood Pressure [Right] O2 Sat by Pulse 97 98 97 Oximetry 06/11/18 06/11/18 06/11/18 21:45 22:00 22:06 Pulse Rate 96 H 93 H Pulse Rate [ 93 H Anterior Bilateral Throughout] Pulse Rate [ Posterior Bilateral Throughout] Respiratory 27 H 18 Rate Respiratory 16 Rate [Anterior Bilateral Throughout] Respiratory Rate [Posterior Bilateral Throughout] Blood Pressure 141/69 144/73 Blood Pressure [Right] O2 Sat by Pulse 96 96 Oximetry 06/11/18 06/11/18 06/11/18 22:07 22:15 22:30 Pulse Rate 91 H 96 H Pulse Rate [ 93 H Anterior Bilateral Throughout] Pulse Rate [ Posterior Bilateral Throughout] Respiratory 25 H 19 Rate Respiratory 14 Rate [Anterior Bilateral Throughout] Respiratory Rate [Posterior Bilateral Throughout] Blood Pressure 136/78 142/81 Blood Pressure [Right] O2 Sat by Pulse 96 96 Oximetry 06/11/18 06/11/18 06/11/18 22:45 23:01 23:07 Pulse Rate 89 86 Pulse Rate [ Anterior Bilateral Throughout] Pulse Rate [ 91 H Posterior Bilateral Throughout] Respiratory 19 19 Rate Respiratory Rate [Anterior Bilateral Throughout] Respiratory 14 Rate [Posterior Bilateral Throughout] Blood Pressure 144/75 121/62 Blood Pressure [Right] O2 Sat by Pulse 96 97 Oximetry 06/11/18 06/11/18 23:15 23:31 Pulse Rate 93 H 89 Pulse Rate [ Anterior Bilateral Throughout] Pulse Rate [ Posterior Bilateral Throughout] Respiratory 22 15 Rate Respiratory Rate [Anterior Bilateral Throughout] Respiratory Rate [Posterior Bilateral Throughout] Blood Pressure 126/78 144/75 Blood Pressure [Right] O2 Sat by Pulse 96 97 Oximetry ED Medical Decision Making - Lab Data Result diagrams: 06/11/18 21:11 06/11/18 21:11 Vital Signs 06/11/18 06/11/18 06/11/18 20:27 20:35 20:45 Pulse Rate 97 H 100 H 92 H Pulse Rate [ Anterior Bilateral Throughout] Pulse Rate [ Posterior Bilateral Throughout] Respiratory 26 H 24 16 Rate Respiratory Rate [Anterior Bilateral Throughout] Respiratory Rate [Posterior Bilateral Throughout] Blood Pressure 131/73 Blood Pressure 158/80 [Right] O2 Sat by Pulse 94 97 Oximetry 06/11/18 06/11/18 06/11/18 21:01 21:15 21:31 Pulse Rate 92 H 89 97 H Pulse Rate [ 85 Anterior Bilateral Throughout] Pulse Rate [ Posterior Bilateral Throughout] Respiratory 18 14 19 Rate Respiratory 20 Rate [Anterior Bilateral Throughout] Respiratory Rate [Posterior Bilateral Throughout] Blood Pressure 126/81 144/76 141/85 Blood Pressure [Right] O2 Sat by Pulse 97 98 97 Oximetry 06/11/18 06/11/18 06/11/18 21:45 22:00 22:06 Pulse Rate 96 H 93 H Pulse Rate [ 93 H Anterior Bilateral Throughout] Pulse Rate [ Posterior Bilateral Throughout] Respiratory 27 H 18 Rate Respiratory 16 Rate [Anterior Bilateral Throughout] Respiratory Rate [Posterior Bilateral Throughout] Blood Pressure 141/69 144/73 Blood Pressure [Right] O2 Sat by Pulse 96 96 Oximetry 06/11/18 06/11/18 06/11/18 22:07 22:15 22:30 Pulse Rate 91 H 96 H Pulse Rate [ 93 H Anterior Bilateral Throughout] Pulse Rate [ Posterior Bilateral Throughout] Respiratory 25 H 19 Rate Respiratory 14 Rate [Anterior Bilateral Throughout] Respiratory Rate [Posterior Bilateral Throughout] Blood Pressure 136/78 142/81 Blood Pressure [Right] O2 Sat by Pulse 96 96 Oximetry 06/11/18 06/11/18 06/11/18 22:45 23:01 23:07 Pulse Rate 89 86 Pulse Rate [ Anterior Bilateral Throughout] Pulse Rate [ 91 H Posterior Bilateral Throughout] Respiratory 19 19 Rate Respiratory Rate [Anterior Bilateral Throughout] Respiratory 14 Rate [Posterior Bilateral Throughout] Blood Pressure 144/75 121/62 Blood Pressure [Right] O2 Sat by Pulse 96 97 Oximetry 06/11/18 06/11/18 23:15 23:31 Pulse Rate 93 H 89 Pulse Rate [ Anterior Bilateral Throughout] Pulse Rate [ Posterior Bilateral Throughout] Respiratory 22 15 Rate Respiratory Rate [Anterior Bilateral Throughout] Respiratory Rate [Posterior Bilateral Throughout] Blood Pressure 126/78 144/75 Blood Pressure [Right] O2 Sat by Pulse 96 97 Oximetry Lab Results 06/11/18 06/11/18 06/11/18 Range/Units 21:11 21:11 21:11 WBC 9.1 (4.5-11.0) K/mm3 RBC 4.04 (3.65-5.03) M/mm3 Hgb 13.0 (11.8-15.2) gm/dl Hct 38.7 (35.5-45.6) % MCV 96 H (84-94) fl MCH 32 (28-32) pg MCHC 34 (32-34) % RDW 13.7 (13.2-15.2) % Plt Count 191 (140-440) K/mm3 Lymph % (Auto) 29.4 (13.4-35.0) % Jerome % (Auto) 7.7 H (0.0-7.3) % Eos % (Auto) 3.6 (0.0-4.3) % Baso % (Auto) 0.5 (0.0-1.8) % Lymph # 2.7 (1.2-5.4) K/mm3 Jerome # 0.7 (0.0-0.8) K/mm3 Eos # 0.3 (0.0-0.4) K/mm3 Baso # 0.0 (0.0-0.1) K/mm3 Seg Neutrophils % 58.8 (40.0-70.0) % Seg Neutrophils # 5.3 (1.8-7.7) K/mm3 Sodium 139 (137-145) mmol/L Potassium 3.5 L (3.6-5.0) mmol/L Chloride 99.4 (98-107) mmol/L Carbon Dioxide 29 (22-30) mmol/L Anion Gap 14 mmol/L BUN 13 (9-20) mg/dL Creatinine 0.9 (0.8-1.5) mg/dL Estimated GFR > 60 ml/min BUN/Creatinine Ratio 14 % Glucose 102 H (75-100) mg/dL Lactic Acid (0.7-2.0) mmol/L Calcium 8.8 (8.4-10.2) mg/dL Total Bilirubin 0.40 (0.1-1.2) mg/dL AST 20 (5-40) units/L ALT 23 (7-56) units/L Alkaline Phosphatase 60 (35-129) units/L Troponin T < 0.010 (0.00-0.029) ng/mL Total Protein 6.7 (6.3-8.2) g/dL Albumin 4.0 (3.9-5) g/dL Albumin/Globulin Ratio 1.5 % 06/11/18 Range/Units 21:11 WBC (4.5-11.0) K/mm3 RBC (3.65-5.03) M/mm3 Hgb (11.8-15.2) gm/dl Hct (35.5-45.6) % MCV (84-94) fl MCH (28-32) pg MCHC (32-34) % RDW (13.2-15.2) % Plt Count (140-440) K/mm3 Lymph % (Auto) (13.4-35.0) % Jerome % (Auto) (0.0-7.3) % Eos % (Auto) (0.0-4.3) % Baso % (Auto) (0.0-1.8) % Lymph # (1.2-5.4) K/mm3 Jerome # (0.0-0.8) K/mm3 Eos # (0.0-0.4) K/mm3 Baso # (0.0-0.1) K/mm3 Seg Neutrophils % (40.0-70.0) % Seg Neutrophils # (1.8-7.7) K/mm3 Sodium (137-145) mmol/L Potassium (3.6-5.0) mmol/L Chloride (98-107) mmol/L Carbon Dioxide (22-30) mmol/L Anion Gap mmol/L BUN (9-20) mg/dL Creatinine (0.8-1.5) mg/dL Estimated GFR ml/min BUN/Creatinine Ratio % Glucose (75-100) mg/dL Lactic Acid 0.80 (0.7-2.0) mmol/L Calcium (8.4-10.2) mg/dL Total Bilirubin (0.1-1.2) mg/dL AST (5-40) units/L ALT (7-56) units/L Alkaline Phosphatase (35-129) units/L Troponin T (0.00-0.029) ng/mL Total Protein (6.3-8.2) g/dL Albumin (3.9-5) g/dL Albumin/Globulin Ratio % - EKG Data -: EKG Interpreted by Ma EKG shows normal: sinus rhythm Rate: normal - EKG Data When compared to previous EKG there are: no significant change 06/12/18 00:09 Sinus, 89 beats per minute, borderline left axis deviation, borderline left anterior fascicular block, borderline right bundle branch block, OK interval within normal limits, QTC 466 ms, abnormal EKG, not consistent with ST elevation myocardial infarction, appears unchanged from prior EKG from 03/15/2016. - Radiology Data Radiology results: report reviewed, image reviewed X-ray of the chest negative for acute disease, tiny pleural effusions noted. - Medical Decision Making Differential diagnosis, including when not limited to: Asthma exacerbation, bronchitis exacerbation, COPD exacerbation, pneumonia, dependent edema Assessment and plan: 62-year-old gentleman with probable recurrent COPD/bronchitis exacerbation. Appreciate history of pulmonary embolus, however he reports his symptoms today do not feel qualitatively similar to his prior episode of pulmonary embolus, and he reports compliance with his systemic anticoagulation. He does not have crackles or rales, he does not have JVD, and he is not especially hypoxic, therefore, do not suspect significant congestive heart failure. After adequate therapy with nebulizer, steroids, patient able to ambulate around the emergency room, without significant desaturation and reported improvement in his symptoms. Has some mild tachycardia at this point in time, which we would expect after his albuterol. He was counseled to participate in physical activities as tolerated, modified diet and lifestyle, attempt weight loss, which he verbalizes understanding to, and he is medically suitable for discharge at this point in time. Critical care attestation.: If time is entered above; I have spent that time in minutes in the direct care of this critically ill patient, excluding procedure time. ED Disposition Clinical Impression: Acute exacerbation of COPD with asthma Disposition: DC-01 TO HOME OR SELFCARE Is pt being admited?: No Does the pt Need Aspirin: No Condition: Stable Instructions: Asthma (ED) Additional Instructions: Continue outpatient medications. Patient will be given an additional nighttime prescription of Lasix, the diuretic water pill, to be taken for the next 7 days. Use the breathing treatments as directed, and take the other medications as needed/directed. Follow-up with your primary care doctor, or financial analysis advisor within the next 2 weeks. I recommend physical activity as tolerated, and weight loss as tolerated. I recommended avoidance of excessive salt, and excessively sweet food. Please return to the emergency room right away with new, worsening or different symptoms. Referrals: STAN ODONNELL MD [Staff Physician] - 7-10 days
== END 2018-06-12 00:21 | disposition home or self-care (01) ==
LOC: ED 20:20
DX: J44.1 Chronic obstructive pulmonary disease with (acute) exacerbation (principal); I10 Essential (primary) hypertension; E66.9 Obesity, unspecified; Z68.41 Body mass index [BMI] 40.0-44.9, adult; Z86.711 Personal history of pulmonary embolism; Z91.041 Radiographic dye allergy status; Z79.82 Long term (current) use of aspirin
CPT/HCPCS: 36415; 71045; 80048; 80053; 82140; 84484; 85025; 93005; 93010; 94640; 96374; 99285; J2930

== ENCOUNTER 2018-06-17 02:33 | Inpatient (IN) | payer OTHER ==
[2018-06-17] MEDS ORDERED: ATROVENT IH ONE (02:39)
[2018-06-17] MEDS ORDERED: PROVENTIL IH ONE (02:39)
[2018-06-17 03:02] LABS: Basophils # (Auto) 0.1 K/mm3 (0.0-0.1); Basophils % (Auto) 0.9 % (0.0-1.8); Eosinophils # (Auto) 0.3 K/mm3 (0.0-0.4); Eosinophils % (Auto) 3.6 % (0.0-4.3); Hematocrit 39.4 % (35.5-45.6); Hemoglobin 13.4 gm/dl (11.8-15.2); Lymphocytes # (Auto) 2.3 K/mm3 (1.2-5.4); Lymphocytes % (Auto) 27.9 % (13.4-35.0); Mean Corpuscular HGB Conc 34 % (32-34); Mean Corpuscular Volume 97 fl (84-94); Monocytes # (Auto) 0.6 K/mm3 (0.0-0.8); Monocytes % (Auto) 6.7 % (0.0-7.3); Platelet Count 189 K/mm3 (140-440); Red Blood Count 4.07 M/mm3 (3.65-5.03); Red Cell Distribution Width 13.3 % (13.2-15.2)
[2018-06-17 03:18] LABS: Alanine Aminotransferase 20 units/L (7-56); Albumin 4.2 g/dL (3.9-5); BUN/Creatinine Ratio 11; Blood Urea Nitrogen 10 mg/dL (9-20); Calcium 8.5 mg/dL (8.4-10.2); Hemolysis Index 14
--- NOTE | 2018-06-17 03:19 | XRay Report ---
PROCEDURE: XR CHEST 1V AP TECHNIQUE: Chest radiograph single view. HISTORY: sob COMPARISONS: None . FINDINGS: Heart: Normal. Mediastinum/Vessels: Normal. Lungs/Pleural space: Normal. Bony thorax: No acute osseous abnormality. Life support devices: None. IMPRESSION: No acute cardiopulmonary abnormality. This document is electronically signed by Mulu Valderrama DO., June 17 2018 03:16:59 AM ET
[2018-06-17] MEDS ORDERED: KETAMINE HCL IV ONE ×2 (03:25→03:29)
[2018-06-17] MEDS ORDERED: ZOFRAN IV ONE (03:25)
--- NOTE | 2018-06-17 04:25 | Emergency Department Report ---
ED General Adult HPI - General Chief complaint: Dyspnea/Respdistress Stated complaint: SOUMYA Time Seen by Provider: 06/17/18 02:38 Source: patient, family, EMS Mode of arrival: Stretcher Limitations: No Limitations - History of Present Illness Initial comments: Patient is a 62-year-old male past medical history of COPD and asthma exacerbation who presents with respiratory distress. History is limited due to acuity of patient's condition. Per EMS patient received 5 mg of albuterol per patient's patient tried his albuterol inhaler but he received no relief. Severity scale (0 -10): 5 - Related Data Home Medications Medication Instructions Recorded Confirmed Last Taken Aclidinium [place] [Tudorza 2 puff IH BID 01/12/16 05/18/18 01/15/18 Pressair] Budesoni/Formotero 160-4.5(Nf) 2 puff IH BID 01/12/16 01/15/18 01/15/18 [Symbicort 160-4.5 (Nf)] Aspirin [Adult Low Dose Aspirin EC] 81 mg PO QAM 01/15/18 05/18/18 01/15/18 Furosemide [Lasix TAB] 40 mg PO QDAY 01/15/18 05/18/18 01/15/18 Potassium Chloride [Klor-Con 10] 10 meq PO QDAY 01/15/18 05/18/18 01/15/18 Rivaroxaban [Xarelto] 20 mg PO QDAY 01/15/18 05/18/18 01/15/18 Albuterol Sulfate [Ventolin HFA] 90 IH PRN PRN 05/18/18 Unknown Fluticasone/Vilanterol [Breo 200 mcg IH BID 05/18/18 05/18/18 Unknown Ellipta 200-25 Mcg INH] amLODIPine [Norvasc] 10 mg PO HS 05/18/18 05/18/18 Unknown Previous Rx's Medication Instructions Recorded Last Taken Type predniSONE [Deltasone] 20 mg PO BID #10 tab 05/18/18 Unknown Rx Albuterol Sulfate [Albuterol 0.63% 0.63 mg IH Q4HR PRN #2 ml 06/12/18 Unknown Rx NEBS] Albuterol Sulfate [Proair 90 mcg IH Q4HR PRN #2 aer.pow.ba 06/12/18 Unknown Rx Respiclick] Furosemide [Lasix] 20 mg PO QHS #7 tablet 06/12/18 Unknown Rx Ipratropium [place] [Atrovent Hfa] 12.9 gm IH Q4HR PRN #1 hfa.aer.ad 06/12/18 Unknown Rx methylPREDNISolone [Medrol] 4 mg PO QDAY #1 tab.ds.pk 06/12/18 Unknown Rx Allergies Allergy/AdvReac Type Severity Reaction Status Date / Time Iodinated Contrast- Oral and Allergy Swelling Verified 02/28/16 03:21 IV Dye [Iodinated Contrast Media - IV Dye] ED Review of Systems ROS: Stated complaint: SOUMYA Other details as noted in HPI Comment: Unobtainable due to pts medical conditions (acuity of patient's condition) Constitutional: denies: chills, fever Eyes: denies: eye pain, eye discharge, vision change ENT: denies: ear pain, throat pain Respiratory: shortness of breath Cardiovascular: denies: chest pain, palpitations Endocrine: no symptoms reported Gastrointestinal: denies: abdominal pain, nausea, diarrhea Genitourinary: denies: urgency, dysuria Musculoskeletal: denies: back pain, joint swelling, arthralgia Skin: denies: rash, lesions Neurological: denies: headache, weakness, paresthesias Psychiatric: denies: anxiety, depression Hematological/Lymphatic: denies: easy bleeding, easy bruising ED Past Medical Hx - Past Medical History Previous Medical History?: Yes Hx Hypertension: Yes Hx Congestive Heart Failure: No Hx Diabetes: No Hx Pulmonary Embolism: Yes (2015) Hx Headaches / Migraines: No Hx Seizures: No Hx Asthma: Yes Hx COPD: Yes Hx Dementia: No Hx HIV: No - Surgical History Past Surgical History?: Yes Additional Surgical History: 2000- lung - Social History Smoking Status: Former Smoker Substance Use Type: Alcohol, Marijuana - Medications Home Medications: Home Medications Medication Instructions Recorded Confirmed Last Taken Type Aclidinium [place] [Tudorza 2 puff IH BID 01/12/16 05/18/18 01/15/18 History Pressair] Budesoni/Formotero 160-4.5(Nf) 2 puff IH BID 01/12/16 01/15/18 01/15/18 History [Symbicort 160-4.5 (Nf)] Aspirin [Adult Low Dose Aspirin EC] 81 mg PO QAM 01/15/18 05/18/18 01/15/18 History Furosemide [Lasix TAB] 40 mg PO QDAY 01/15/18 05/18/18 01/15/18 History Potassium Chloride [Klor-Con 10] 10 meq PO QDAY 01/15/18 05/18/18 01/15/18 History Rivaroxaban [Xarelto] 20 mg PO QDAY 01/15/18 05/18/18 01/15/18 History Albuterol Sulfate [Ventolin HFA] 90 IH PRN PRN 05/18/18 Unknown History Fluticasone/Vilanterol [Breo 200 mcg IH BID 05/18/18 05/18/18 Unknown History Ellipta 200-25 Mcg INH] amLODIPine [Norvasc] 10 mg PO HS 05/18/18 05/18/18 Unknown History predniSONE [Deltasone] 20 mg PO BID #10 tab 05/18/18 Unknown Rx Albuterol Sulfate [Albuterol 0.63% 0.63 mg IH Q4HR PRN #2 ml 06/12/18 Unknown Rx NEBS] Albuterol Sulfate [Proair 90 mcg IH Q4HR PRN #2 aer.pow.ba 06/12/18 Unknown Rx Respiclick] Furosemide [Lasix] 20 mg PO QHS #7 tablet 06/12/18 Unknown Rx Ipratropium [place] [Atrovent Hfa] 12.9 gm IH Q4HR PRN #1 hfa.aer.ad 06/12/18 Unknown Rx methylPREDNISolone [Medrol] 4 mg PO QDAY #1 tab.ds.pk 06/12/18 Unknown Rx ED Physical Exam - General Limitations: No Limitations General appearance: alert, in distress, obese - Head Head exam: Present: atraumatic, normocephalic - Eye Eye exam: Present: normal appearance - ENT ENT exam: Present: mucous membranes moist - Neck Neck exam: Present: normal inspection - Respiratory Respiratory exam: Present: respiratory distress, wheezes, accessory muscle use, prolonged expiratory - Cardiovascular Cardiovascular Exam: Present: regular rate, normal rhythm. Absent: systolic murmur, diastolic murmur, rubs, gallop - GI/Abdominal GI/Abdominal exam: Present: soft, normal bowel sounds - Rectal Rectal exam: Present: deferred - Extremities Exam Extremities exam: Present: normal inspection - Back Exam Back exam: Present: normal inspection - Neurological Exam Neurological exam: Present: alert, oriented X3 - Psychiatric Psychiatric exam: Present: normal affect, normal mood - Skin Skin exam: Present: warm, dry, intact, normal color. Absent: rash ED Course Vital Signs 06/17/18 06/17/18 06/17/18 02:41 02:45 02:49 Temperature 98.4 F Pulse Rate 114 H 105 H 108 H Pulse Rate [ Anterior Bilateral Throughout] Respiratory 27 H 24 26 H Rate Respiratory Rate [Anterior Bilateral Throughout] Blood Pressure 138/96 138/96 138/96 O2 Sat by Pulse 99 98 100 Oximetry 06/17/18 06/17/18 06/17/18 02:54 03:01 03:15 Temperature Pulse Rate 104 H 118 H Pulse Rate [ 108 H Anterior Bilateral Throughout] Respiratory 25 H 19 Rate Respiratory 26 H Rate [Anterior Bilateral Throughout] Blood Pressure 158/102 158/102 O2 Sat by Pulse 98 94 Oximetry 06/17/18 06/17/18 06/17/18 03:31 03:45 04:01 Temperature Pulse Rate 117 H 109 H Pulse Rate [ Anterior Bilateral Throughout] Respiratory 20 20 Rate Respiratory Rate [Anterior Bilateral Throughout] Blood Pressure 158/102 207/113 159/96 O2 Sat by Pulse 98 97 98 Oximetry 06/17/18 06/17/18 06/17/18 04:15 04:31 04:45 Temperature Pulse Rate 101 H 103 H 95 H Pulse Rate [ Anterior Bilateral Throughout] Respiratory 18 20 11 L Rate Respiratory Rate [Anterior Bilateral Throughout] Blood Pressure 159/96 142/84 142/84 O2 Sat by Pulse 97 98 97 Oximetry 06/17/18 06/17/18 05:01 05:15 Temperature Pulse Rate 98 H 111 H Pulse Rate [ Anterior Bilateral Throughout] Respiratory 19 19 Rate Respiratory Rate [Anterior Bilateral Throughout] Blood Pressure 172/97 172/97 O2 Sat by Pulse 97 97 Oximetry ED Medical Decision Making - Lab Data Result diagrams: 06/17/18 02:54 06/17/18 02:54 Lab Results 06/17/18 06/17/18 06/17/18 Range/Units 02:54 02:54 03:30 WBC 8.4 (4.5-11.0) K/mm3 RBC 4.07 (3.65-5.03) M/mm3 Hgb 13.4 (11.8-15.2) gm/dl Hct 39.4 (35.5-45.6) % MCV 97 H (84-94) fl MCH 33 H (28-32) pg MCHC 34 (32-34) % RDW 13.3 (13.2-15.2) % Plt Count 189 (140-440) K/mm3 Lymph % (Auto) 27.9 (13.4-35.0) % [place] % (Auto) 6.7 (0.0-7.3) % Eos % (Auto) 3.6 (0.0-4.3) % Baso % (Auto) 0.9 (0.0-1.8) % Lymph # 2.3 (1.2-5.4) K/mm3 [place] # 0.6 (0.0-0.8) K/mm3 Eos # 0.3 (0.0-0.4) K/mm3 Baso # 0.1 (0.0-0.1) K/mm3 Seg Neutrophils % 60.9 (40.0-70.0) % Seg Neutrophils # 5.1 (1.8-7.7) K/mm3 POC ABG pH 7.312 L (7.35-7.45) POC ABG pCO2 60.4 H (35-45) POC ABG pO2 37 L (80-105) POC ABG HCO3 30.6 POC ABG Total CO2 32 POC ABG O2 Sat 64 POC ABG Base Excess 4 FiO2 35 % Sodium 137 (137-145) mmol/L Potassium 3.5 L (3.6-5.0) mmol/L Chloride 98.7 (98-107) mmol/L Carbon Dioxide 26 (22-30) mmol/L Anion Gap 16 mmol/L BUN 10 (9-20) mg/dL Creatinine 0.9 (0.8-1.5) mg/dL Estimated GFR > 60 ml/min BUN/Creatinine Ratio 11 % Glucose 104 H (75-100) mg/dL Calcium 8.5 (8.4-10.2) mg/dL Total Bilirubin 0.50 (0.1-1.2) mg/dL AST 22 (5-40) units/L ALT 20 (7-56) units/L Alkaline Phosphatase 58 (35-129) units/L Troponin T < 0.010 (0.00-0.029) ng/mL Total Protein 6.9 (6.3-8.2) g/dL Albumin 4.2 (3.9-5) g/dL Albumin/Globulin Ratio 1.6 % 06/17/18 Range/Units 03:36 WBC (4.5-11.0) K/mm3 RBC (3.65-5.03) M/mm3 Hgb (11.8-15.2) gm/dl Hct (35.5-45.6) % MCV (84-94) fl MCH (28-32) pg MCHC (32-34) % RDW (13.2-15.2) % Plt Count (140-440) K/mm3 Lymph % (Auto) (13.4-35.0) % [place] % (Auto) (0.0-7.3) % Eos % (Auto) (0.0-4.3) % Baso % (Auto) (0.0-1.8) % Lymph # (1.2-5.4) K/mm3 [place] # (0.0-0.8) K/mm3 Eos # (0.0-0.4) K/mm3 Baso # (0.0-0.1) K/mm3 Seg Neutrophils % (40.0-70.0) % Seg Neutrophils # (1.8-7.7) K/mm3 POC ABG pH 7.309 L (7.35-7.45) POC ABG pCO2 56.4 H (35-45) POC ABG pO2 110 H (80-105) POC ABG HCO3 28.4 POC ABG Total CO2 30 POC ABG O2 Sat 98 POC ABG Base Excess 2 FiO2 35 % Sodium (137-145) mmol/L Potassium (3.6-5.0) mmol/L Chloride (98-107) mmol/L Carbon Dioxide (22-30) mmol/L Anion Gap mmol/L BUN (9-20) mg/dL Creatinine (0.8-1.5) mg/dL Estimated GFR ml/min BUN/Creatinine Ratio % Glucose (75-100) mg/dL Calcium (8.4-10.2) mg/dL Total Bilirubin (0.1-1.2) mg/dL AST (5-40) units/L ALT (7-56) units/L Alkaline Phosphatase (35-129) units/L Troponin T (0.00-0.029) ng/mL Total Protein (6.3-8.2) g/dL Albumin (3.9-5) g/dL Albumin/Globulin Ratio % - EKG Data -: EKG Interpreted by Me - EKG Data 06/17/18 05:38 EKG shows sinus tachycardia probable left atrial enlargement right lobe branch block right axis deviation. Impression sinus tachycardia - Radiology Data Radiology results: report reviewed, image reviewed Chest x-ray: Shows no acute cardiopulmonary disease - Medical Decision Making Chief medical diagnosis: Respiratory distress secondary to COPD exacerbation Differential medical diagnosis: Pneumothorax, hypercapnia, non-STEMI, arrhythmia, electrolyte abnormality I will get ABG Gerson get chest x-ray BLOOD work L put patient on BiPAP IV sharda roids up uterine breathing treatment and IV ketamine. I will admit patient to the hospital due to his life-threatening condition Critical Care Time: Yes Critical care time in (mins) excluding proc time.: 60 Critical care attestation.: If time is entered above; I have spent that time in minutes in the direct care of this critically ill patient, excluding procedure time. Critical care time spent at patient's bedside 30 minutes Critical care time spent informing family members 10 minutes Critical care time spent reviewing laboratory and imaging findings 10 minutes Critical care time spent with consultants 10 minutes ED Disposition Clinical Impression: Acute exacerbation of COPD with asthma, SOB (shortness of breath), Respiratory distress Disposition: OP ADMIT IP TO THIS HOSP Is pt being admited?: Yes Does the pt Need Aspirin: No Condition: Stable Instructions: Asthma (ED) Referrals: PRIMARY CARE, [Primary Care Provider] - 3-5 Days
[2018-06-17] MEDS ORDERED: DECADRON IV ONE (04:54)
[2018-06-17] MEDS ORDERED: MORPHINE IV ONE (05:16)
[2018-06-17] MEDS ORDERED: ATIVAN IV ONE (05:17)
[2018-06-17] MEDS ORDERED: SOLU-Medrol IV ONE (05:19)
[2018-06-17] MEDS ORDERED: SOLU-Medrol ONE (05:23)
[2018-06-17] MEDS ORDERED: MAGNESIUM SULFATE 2GM/50ML 2 GM/50 ML BAG IV ONE (05:40)
[2018-06-17] MEDS ORDERED: TYLENOL PO PRN (06:00)
[2018-06-17] MEDS ORDERED: ZOFRAN IV PRN (06:00)
[2018-06-17] MEDS ORDERED: SODIUM CHLORIDE FLUSH SYRINGE 10 ML IV PRN (06:00)
--- NOTE | 2018-06-17 06:00 | History and Physical Report ---
History of Present Illness Date of examination: 06/17/18 History of present illness: 62-year-old man history of asthma, hypertension, COPD was brought to the emergency room because he has been having shortness of breath 2 days. Has been using his nebulizer treatment with mild improvement. Complains of nonproductive cough, no fever or chills. Patient was given steroids, breathing treatment and started on BiPAP Review of systems Constitutional: no weight loss, chills, fever Ears, eyes, nose, mouth and throat: no nasal congestion, no nasal discharge, no sinus pressure, no vision change, no red eye. Neck: No neck pain or rigidity. Cardiovascular: no palpitations, chest pain Respiratory: + cough, shortness of breath Gastrointestinal: no hematochezia, abdominal pain Genitourinary : no frequency , no hematuria Musculoskeletal: no joint swelling or muscle ache Integumentary: no rash, no pruritis Neurological: no parathesias, no focal weakness Endocrine: no cold or heat intolerance, no polyuria or polydipsia Hematologic/Lymphatic: no easy bruising, no easy bleeding, no gland swelling Allergic/Immunologic: no urticaria, no angioedema. PAST MEDICAL HISTORY: asthma, hypertension, COPD PAST SURGICAL HISTORY: None SOCIAL HISTORY: Social alcohol, no tobacco or drugs FAMILY HISTORY: Hypertension Medications and Allergies Allergies Allergy/AdvReac Type Severity Reaction Status Date / Time Iodinated Contrast- Oral and Allergy Swelling Verified 02/28/16 03:21 IV Dye [Iodinated Contrast Media - IV Dye] Home Medications Medication Instructions Recorded Confirmed Last Taken Type Aclidinium [place] [Tudorza 2 puff IH BID 01/12/16 06/17/18 01/15/18 History Pressair] Furosemide [Lasix TAB] 40 mg PO QDAY 01/15/18 06/17/18 01/15/18 History Albuterol Sulfate [Ventolin HFA] 90 neb IH PRN PRN 05/18/18 06/17/18 Unknown History Albuterol Sulfate [Albuterol 0.63% 0.63 mg IH Q4HR PRN #2 ml 06/12/18 06/17/18 Unknown Rx NEBS] Albuterol Sulfate [Proair 90 mcg IH Q4HR PRN #2 aer.pow.ba 06/12/18 06/17/18 Unknown Rx Respiclick] predniSONE [Deltasone] 20 mg PO BID 06/17/18 06/17/18 Unknown History Arformoterol Nebu [Brovana Nebu] 15 mcg IH Q12HRT 30 Days ml 06/22/18 Unknown Rx Aspirin [Adult Low Dose Aspirin EC] 81 mg PO QAM #30 tablet. 06/22/18 Unknown Rx Budesoni/Formotero 160-4.5(Nf) 2 puff IH BID 30 Days inha 06/22/18 Unknown Rx [Symbicort 160-4.5 (Nf)] Budesonide [Pulmicort Respules] 0.5 mg IH Q12HRT 30 Days nebu 06/22/18 Unknown Rx Fluticasone/Vilanterol [Breo 200 mcg IH BID 30 Days blst.w.dev 06/22/18 Unknown Rx Ellipta 200-25 Mcg INH] Furosemide [Lasix] 20 mg PO QHS #7 tablet 06/22/18 Unknown Rx Ipratropium 0.06% [Atrovent] 2 spray NS Q8HR 30 Days bottle 06/22/18 Unknown Rx Ipratropium [place] [Atrovent Hfa] 12.9 gm IH Q4HR PRN #1 hfa.aer.ad 06/22/18 Unknown Rx Montelukast [Singulair] 10 mg PO QHS #30 tablet 06/22/18 Unknown Rx Potassium Chloride [Klor-Con 10] 10 meq PO QDAY 30 Days tablet.er 06/22/18 Unknown Rx Rivaroxaban [Xarelto] 20 mg PO QDAY #30 tablet 06/22/18 Unknown Rx amLODIPine [Norvasc] 10 mg PO HS #30 tablet 06/22/18 Unknown Rx methylPREDNISolone [Medrol Dose 4 mg PO QDAY #1 tab.ds.pk 06/22/18 Unknown Rx Jf] Active Meds: Active Medications Magnesium Sulfate (Magnesium Sulfate 2gm/50ml) 2 gm in 50 mls @ 100 mls/hr IV ONCE ONE Stop: 06/17/18 06:09 Exam - Physical Exam Narrative exam: General Apperance: The patient lying in bed, breathing comfortable HEENT: Normocephalic, atraumatic. Pupils equally round and reactive to light, EOMI, no sclericterus or JVD or thyromegaly or nodule. , no carotid bruit, mucous membranes moist, no exudate or erythema Heart: S1-S2, regular is rhythm Lungs: Wheezing, decreased air entry bilaterally, breathing comfortable Abdomen: Positive bowel sounds, soft, nontender, nondistended, no organomegaly Extremities: No edema cyanosis clubbing Skin: no rash, nodule, warm and dry Neuro: cranial nerves 2-12 intact, speech is fluent, motor/sensory intact - Constitutional Vitals: Temp Pulse Resp BP Pulse Ox 98.4 F 111 H 19 172/97 97 06/17/18 02:41 06/17/18 05:15 06/17/18 05:15 06/17/18 05:15 06/17/18 05:15 Results - Labs CBC & Chem 7: 06/18/18 04:44 06/18/18 04:44 Labs: Abnormal lab results 06/17/18 06/17/18 06/17/18 Range/Units 02:54 02:54 03:30 MCV 97 H (84-94) fl MCH 33 H (28-32) pg POC ABG pH 7.312 L (7.35-7.45) POC ABG pCO2 60.4 H (35-45) POC ABG pO2 37 L (80-105) Potassium 3.5 L (3.6-5.0) mmol/L Glucose 104 H (75-100) mg/dL 06/17/18 Range/Units 03:36 MCV (84-94) fl MCH (28-32) pg POC ABG pH 7.309 L (7.35-7.45) POC ABG pCO2 56.4 H (35-45) POC ABG pO2 110 H (80-105) Potassium (3.6-5.0) mmol/L Glucose (75-100) mg/dL Assessment and Plan Assessment Acute respiratory failure Asthma Exacerbation Hypertension Obesity Plan Admit TO medicine Start high-dose IV steroids, nebulized treatment, continue BiPAP Start DVT prophylaxis
[2018-06-17] MEDS ORDERED: DUONEB *Not for PRN Use IH ONE (07:49)
[2018-06-17] MEDS: DUONEB *Not for PRN Use IH SCH ×3 (08:03→19:45)
[2018-06-17] MEDS: SODIUM CHLORIDE FLUSH SYRINGE 10 ML IV SCH ×2 (09:51→21:44)
[2018-06-17] MEDS ORDERED: LOVENOX SUB-Q SCH ×2 (10:00)
[2018-06-17] MEDS ORDERED: SOLU-Medrol IV SCH (12:00)
[2018-06-17] MEDS ORDERED: LASIX IV ONE (13:31)
[2018-06-17] MEDS: SOLU-Medrol IV SCH ×2 (13:36→21:43)
--- NOTE | 2018-06-17 15:42 | Event Note ---
Date: 06/17/18 Patient was admitted earlier this morning for the management of acute respiratory failure secondary COPD exacerbation. Continue management for per H/P.
[2018-06-17] MEDS: PULMICORT IH SCH ×3 (16:35→23:07)
[2018-06-17] MEDS: BROVANA NEBU IH SCH ×3 (16:35→23:07)
[2018-06-17] MEDS: NORVASC PO SCH (21:49)
[2018-06-17] MEDS: SINGULAIR PO SCH (21:50)
[2018-06-17] MEDS ORDERED: VILANTEROL IH SCH (22:00)
[2018-06-17] MEDS ORDERED: FLUTICASONE IH SCH (22:00)
[2018-06-18] MEDS: DUONEB *Not for PRN Use IH SCH ×4 (02:34→21:19)
[2018-06-18] MEDS: SOLU-Medrol IV SCH ×3 (05:18→21:25)
[2018-06-18 06:06] LABS: Basophils # (Auto) 0.1 K/mm3 (0.0-0.1); Basophils % (Auto) 1.3 % (0.0-1.8); Hematocrit 38.5 % (35.5-45.6); Hemoglobin 12.9 gm/dl (11.8-15.2); Lymphocytes # (Auto) 0.9 K/mm3 (1.2-5.4); Lymphocytes % (Auto) 8.1 % (13.4-35.0); Mean Corpuscular HGB Conc 34 % (32-34); Mean Corpuscular Volume 96 fl (84-94); Monocytes # (Auto) 0.6 K/mm3 (0.0-0.8); Monocytes % (Auto) 4.9 % (0.0-7.3); Platelet Count 203 K/mm3 (140-440); Red Blood Count 4.02 M/mm3 (3.65-5.03); Red Cell Distribution Width 13.4 % (13.2-15.2)
[2018-06-18 06:24] LABS: BUN/Creatinine Ratio 22; Blood Urea Nitrogen 20 mg/dL (9-20); Calcium 9.1 mg/dL (8.4-10.2); Hemolysis Index 76
[2018-06-18] MEDS: BROVANA NEBU IH SCH ×2 (09:21→21:19)
[2018-06-18] MEDS: PULMICORT IH SCH ×2 (09:22→21:19)
[2018-06-18] MEDS: HALFPRIN EC PO SCH (09:55)
[2018-06-18] MEDS: XARELTO PO SCH (09:55)
[2018-06-18] MEDS: SODIUM CHLORIDE FLUSH SYRINGE 10 ML IV SCH ×2 (09:55→21:26)
[2018-06-18] MEDS: LASIX PO SCH (09:55)
--- NOTE | 2018-06-18 11:34 | Progress Note ---
Assessment and Plan Assessment and plan: Acute hypoxemic respiratory failure. Continue O2, supportive care and BiPAP if clinically indicated. Acute asthma exacerbation. Continue systemic steroids, bronchodilators/nebulizer treatments. COPD exacerbation. As above. JAMES. Morbid obesity. Hypertension. Continue antihypertensive medications. History of PE. Continue xarerlto History Interval history: No new issues overnight. Hospitalist Physical - Constitutional Vitals: Temp Pulse Resp BP Pulse Ox 98.0 F 92 H 18 127/78 97 06/18/18 08:07 06/18/18 09:48 06/18/18 09:48 06/18/18 08:07 06/18/18 09:27 General appearance: Present: no acute distress, well-nourished - EENT Eyes: Present: PERRL, EOM intact ENT: hearing intact, clear oral mucosa, dentition normal - Neck Neck: Present: supple, normal ROM - Respiratory Respiratory effort: normal Respiratory: bilateral: diminished, wheezing - Cardiovascular Rhythm: regular Heart Sounds: Present: S1 & S2. Absent: gallop, rub - Extremities Extremities: no ischemia, No edema, Full ROM - Abdominal General gastrointestinal: soft, non-tender, non-distended, normal bowel sounds - Integumentary Integumentary: Present: clear, warm, dry - Neurologic Neurologic: CNII-XII intact, moves all extremities Results - Labs CBC & Chem 7: 06/18/18 04:44 06/18/18 04:44 Labs: Laboratory Last Values WBC 11.3 K/mm3 (4.5-11.0) H 06/18/18 04:44 RBC 4.02 M/mm3 (3.65-5.03) 06/18/18 04:44 Hgb 12.9 gm/dl (11.8-15.2) 06/18/18 04:44 Hct 38.5 % (35.5-45.6) 06/18/18 04:44 MCV 96 fl (84-94) H 06/18/18 04:44 MCH 32 pg (28-32) 06/18/18 04:44 MCHC 34 % (32-34) 06/18/18 04:44 RDW 13.4 % (13.2-15.2) 06/18/18 04:44 Plt Count 203 K/mm3 (140-440) 06/18/18 04:44 Lymph % (Auto) 8.1 % (13.4-35.0) L 06/18/18 04:44 [place] % (Auto) 4.9 % (0.0-7.3) 06/18/18 04:44 Eos % (Auto) 0.0 % (0.0-4.3) 06/18/18 04:44 Baso % (Auto) 1.3 % (0.0-1.8) 06/18/18 04:44 Lymph # 0.9 K/mm3 (1.2-5.4) L 06/18/18 04:44 [place] # 0.6 K/mm3 (0.0-0.8) 06/18/18 04:44 Eos # 0.0 K/mm3 (0.0-0.4) 06/18/18 04:44 Baso # 0.1 K/mm3 (0.0-0.1) 06/18/18 04:44 Seg Neutrophils % 85.7 % (40.0-70.0) H 06/18/18 04:44 Seg Neutrophils # 9.7 K/mm3 (1.8-7.7) H 06/18/18 04:44 POC ABG pH 7.364 (7.35-7.45) 06/17/18 13:52 POC ABG pCO2 50.2 (35-45) H 06/17/18 13:52 POC ABG pO2 253 (80-105) H 06/17/18 13:52 POC ABG HCO3 28.6 06/17/18 13:52 POC ABG Total CO2 30 06/17/18 13:52 POC ABG O2 Sat 100 06/17/18 13:52 POC ABG Base Excess 3 06/17/18 13:52 FiO2 50 % 06/17/18 13:52 Sodium 143 mmol/L (137-145) 06/18/18 04:44 Potassium 5.2 mmol/L (3.6-5.0) H D 06/18/18 04:44 Chloride 102.4 mmol/L (98-107) 06/18/18 04:44 Carbon Dioxide 28 mmol/L (22-30) 06/18/18 04:44 Anion Gap 18 mmol/L 06/18/18 04:44 BUN 20 mg/dL (9-20) 06/18/18 04:44 Creatinine 0.9 mg/dL (0.8-1.5) 06/18/18 04:44 Estimated GFR > 60 ml/min 06/18/18 04:44 BUN/Creatinine Ratio 22 % 06/18/18 04:44 Glucose 126 mg/dL (75-100) H 06/18/18 04:44 Calcium 9.1 mg/dL (8.4-10.2) 06/18/18 04:44 Total Bilirubin 0.50 mg/dL (0.1-1.2) 06/17/18 02:54 AST 22 units/L (5-40) 06/17/18 02:54 ALT 20 units/L (7-56) 06/17/18 02:54 Alkaline Phosphatase 58 units/L (35-129) 06/17/18 02:54 Troponin T < 0.010 ng/mL (0.00-0.029) 06/17/18 05:23 Total Protein 6.9 g/dL (6.3-8.2) 06/17/18 02:54 Albumin 4.2 g/dL (3.9-5) 06/17/18 02:54 Albumin/Globulin Ratio 1.6 % 06/17/18 02:54
[2018-06-18] MEDS: NORVASC PO SCH (21:25)
[2018-06-18] MEDS: SINGULAIR PO SCH (21:26)
[2018-06-19] MEDS: DUONEB *Not for PRN Use IH SCH ×4 (02:24→20:15)
[2018-06-19] MEDS: PULMICORT IH SCH ×2 (08:10→20:15)
[2018-06-19] MEDS: BROVANA NEBU IH SCH ×2 (08:12→20:15)
[2018-06-19] MEDS: HALFPRIN EC PO SCH (09:29)
[2018-06-19] MEDS: XARELTO PO SCH (09:29)
[2018-06-19] MEDS: SODIUM CHLORIDE FLUSH SYRINGE 10 ML IV SCH ×2 (09:29→21:31)
[2018-06-19] MEDS: LASIX PO SCH (09:29)
--- NOTE | 2018-06-19 11:08 | Progress Note ---
Assessment and Plan Assessment and plan: Acute hypoxemic respiratory failure. Continue O2, supportive care and BiPAP if clinically indicated. Consult Dr. Zaman for further evaluation. Acute asthma exacerbation. Continue systemic steroids, br onchodilators/nebulizer treatments. COPD exacerbation. As above. JAMES. Morbid obesity. Hypertension. Continue antihypertensive medications. History of PE. Continue xarerlto History Interval history: No new issues overnight. Hospitalist Physical - Constitutional Vitals: Temp Pulse Resp BP Pulse Ox 97.9 F 88 16 147/93 95 06/19/18 08:03 06/19/18 08:14 06/19/18 08:14 06/19/18 08:03 06/19/18 08:15 General appearance: Present: no acute distress, well-nourished - EENT Eyes: Present: PERRL, EOM intact ENT: hearing intact, clear oral mucosa, dentition normal - Neck Neck: Present: supple, normal ROM - Respiratory Respiratory effort: normal Respiratory: bilateral: rhonchi, wheezing - Cardiovascular Rhythm: regular Heart Sounds: Present: S1 & S2. Absent: gallop, rub - Extremities Extremities: no ischemia, No edema, Full ROM - Abdominal General gastrointestinal: soft, non-tender, non-distended, normal bowel sounds - Integumentary Integumentary: Present: clear, warm, dry - Neurologic Neurologic: CNII-XII intact, moves all extremities Results - Labs CBC & Chem 7: 06/18/18 04:44 06/18/18 04:44 Labs: Laboratory Last Values WBC 11.3 K/mm3 (4.5-11.0) H 06/18/18 04:44 RBC 4.02 M/mm3 (3.65-5.03) 06/18/18 04:44 Hgb 12.9 gm/dl (11.8-15.2) 06/18/18 04:44 Hct 38.5 % (35.5-45.6) 06/18/18 04:44 MCV 96 fl (84-94) H 06/18/18 04:44 MCH 32 pg (28-32) 06/18/18 04:44 MCHC 34 % (32-34) 06/18/18 04:44 RDW 13.4 % (13.2-15.2) 06/18/18 04:44 Plt Count 203 K/mm3 (140-440) 06/18/18 04:44 Lymph % (Auto) 8.1 % (13.4-35.0) L 06/18/18 04:44 [place] % (Auto) 4.9 % (0.0-7.3) 06/18/18 04:44 Eos % (Auto) 0.0 % (0.0-4.3) 06/18/18 04:44 Baso % (Auto) 1.3 % (0.0-1.8) 06/18/18 04:44 Lymph # 0.9 K/mm3 (1.2-5.4) L 06/18/18 04:44 [place] # 0.6 K/mm3 (0.0-0.8) 06/18/18 04:44 Eos # 0.0 K/mm3 (0.0-0.4) 06/18/18 04:44 Baso # 0.1 K/mm3 (0.0-0.1) 06/18/18 04:44 Seg Neutrophils % 85.7 % (40.0-70.0) H 06/18/18 04:44 Seg Neutrophils # 9.7 K/mm3 (1.8-7.7) H 06/18/18 04:44 POC ABG pH 7.364 (7.35-7.45) 06/17/18 13:52 POC ABG pCO2 50.2 (35-45) H 06/17/18 13:52 POC ABG pO2 253 (80-105) H 06/17/18 13:52 POC ABG HCO3 28.6 06/17/18 13:52 POC ABG Total CO2 30 06/17/18 13:52 POC ABG O2 Sat 100 06/17/18 13:52 POC ABG Base Excess 3 06/17/18 13:52 FiO2 50 % 06/17/18 13:52 Sodium 143 mmol/L (137-145) 06/18/18 04:44 Potassium 5.2 mmol/L (3.6-5.0) H D 06/18/18 04:44 Chloride 102.4 mmol/L (98-107) 06/18/18 04:44 Carbon Dioxide 28 mmol/L (22-30) 06/18/18 04:44 Anion Gap 18 mmol/L 06/18/18 04:44 BUN 20 mg/dL (9-20) 06/18/18 04:44 Creatinine 0.9 mg/dL (0.8-1.5) 06/18/18 04:44 Estimated GFR > 60 ml/min 06/18/18 04:44 BUN/Creatinine Ratio 22 % 06/18/18 04:44 Glucose 126 mg/dL (75-100) H 06/18/18 04:44 Calcium 9.1 mg/dL (8.4-10.2) 06/18/18 04:44 Total Bilirubin 0.50 mg/dL (0.1-1.2) 06/17/18 02:54 AST 22 units/L (5-40) 06/17/18 02:54 ALT 20 units/L (7-56) 06/17/18 02:54 Alkaline Phosphatase 58 units/L (35-129) 06/17/18 02:54 Troponin T < 0.010 ng/mL (0.00-0.029) 06/17/18 05:23 Total Protein 6.9 g/dL (6.3-8.2) 06/17/18 02:54 Albumin 4.2 g/dL (3.9-5) 06/17/18 02:54 Albumin/Globulin Ratio 1.6 % 06/17/18 02:54
[2018-06-19] MEDS: SOLU-Medrol IV SCH ×2 (13:57→21:28)
[2018-06-19] MEDS: NORVASC PO SCH (21:28)
[2018-06-19] MEDS: SINGULAIR PO SCH (21:29)
[2018-06-20] MEDS: DUONEB *Not for PRN Use IH SCH ×4 (03:26→20:17)
[2018-06-20] MEDS: SOLU-Medrol IV SCH ×4 (06:53→22:12)
[2018-06-20] MEDS: BROVANA NEBU IH SCH ×2 (08:55→20:17)
[2018-06-20] MEDS: PULMICORT IH SCH ×2 (08:56→20:16)
[2018-06-20] MEDS: XARELTO PO SCH (09:21)
[2018-06-20] MEDS: LASIX PO SCH (09:21)
[2018-06-20] MEDS: HALFPRIN EC PO SCH (09:21)
[2018-06-20] MEDS: SODIUM CHLORIDE FLUSH SYRINGE 10 ML IV SCH ×2 (09:22→22:13)
--- NOTE | 2018-06-20 10:49 | Progress Note ---
Assessment and Plan Assessment and plan: Acute hypoxemic respiratory failure. Continue O2, supportive care and BiPAP if clinically indicated. Consulted Dr. Zaman for further evaluation. Acute asthma exacerbation. Continue systemic steroids, bronchodilators/nebulizer treatments. COPD exacerbation. As above. JAMES. Morbid obesity. Hypertension. Continue antihypertensive medications. History of PE. Continue xarelto History Interval history: No new issues overnight. Hospitalist Physical - Constitutional Vitals: Temp Pulse Resp BP Pulse Ox 97.5 F L 83 20 149/87 98 06/20/18 04:08 06/20/18 09:14 06/20/18 09:14 06/20/18 08:07 06/20/18 08:54 General appearance: Present: no acute distress, well-nourished - EENT Eyes: Present: PERRL, EOM intact ENT: hearing intact, clear oral mucosa, dentition normal - Neck Neck: Present: supple, normal ROM - Respiratory Respiratory effort: normal Respiratory: bilateral: diminished, wheezing - Cardiovascular Rhythm: regular Heart Sounds: Present: S1 & S2. Absent: gallop, rub - Extremities Extremities: no ischemia, No edema, Full ROM - Abdominal General gastrointestinal: soft, non-tender, non-distended, normal bowel sounds - Integumentary Integumentary: Present: clear, warm, dry - Neurologic Neurologic: CNII-XII intact, moves all extremities Results - Labs CBC & Chem 7: 06/18/18 04:44 06/18/18 04:44 Labs: Laboratory Last Values WBC 11.3 K/mm3 (4.5-11.0) H 06/18/18 04:44 RBC 4.02 M/mm3 (3.65-5.03) 06/18/18 04:44 Hgb 12.9 gm/dl (11.8-15.2) 06/18/18 04:44 Hct 38.5 % (35.5-45.6) 06/18/18 04:44 MCV 96 fl (84-94) H 06/18/18 04:44 MCH 32 pg (28-32) 06/18/18 04:44 MCHC 34 % (32-34) 06/18/18 04:44 RDW 13.4 % (13.2-15.2) 06/18/18 04:44 Plt Count 203 K/mm3 (140-440) 06/18/18 04:44 Lymph % (Auto) 8.1 % (13.4-35.0) L 06/18/18 04:44 Thomas % (Auto) 4.9 % (0.0-7.3) 06/18/18 04:44 Eos % (Auto) 0.0 % (0.0-4.3) 06/18/18 04:44 Baso % (Auto) 1.3 % (0.0-1.8) 06/18/18 04:44 Lymph # 0.9 K/mm3 (1.2-5.4) L 06/18/18 04:44 Thomas # 0.6 K/mm3 (0.0-0.8) 06/18/18 04:44 Eos # 0.0 K/mm3 (0.0-0.4) 06/18/18 04:44 Baso # 0.1 K/mm3 (0.0-0.1) 06/18/18 04:44 Seg Neutrophils % 85.7 % (40.0-70.0) H 06/18/18 04:44 Seg Neutrophils # 9.7 K/mm3 (1.8-7.7) H 06/18/18 04:44 POC ABG pH 7.364 (7.35-7.45) 06/17/18 13:52 POC ABG pCO2 50.2 (35-45) H 06/17/18 13:52 POC ABG pO2 253 (80-105) H 06/17/18 13:52 POC ABG HCO3 28.6 06/17/18 13:52 POC ABG Total CO2 30 06/17/18 13:52 POC ABG O2 Sat 100 06/17/18 13:52 POC ABG Base Excess 3 06/17/18 13:52 FiO2 50 % 06/17/18 13:52 Sodium 143 mmol/L (137-145) 06/18/18 04:44 Potassium 5.2 mmol/L (3.6-5.0) H D 06/18/18 04:44 Chloride 102.4 mmol/L (98-107) 06/18/18 04:44 Carbon Dioxide 28 mmol/L (22-30) 06/18/18 04:44 Anion Gap 18 mmol/L 06/18/18 04:44 BUN 20 mg/dL (9-20) 06/18/18 04:44 Creatinine 0.9 mg/dL (0.8-1.5) 06/18/18 04:44 Estimated GFR > 60 ml/min 06/18/18 04:44 BUN/Creatinine Ratio 22 % 06/18/18 04:44 Glucose 126 mg/dL (75-100) H 06/18/18 04:44 Calcium 9.1 mg/dL (8.4-10.2) 06/18/18 04:44 Total Bilirubin 0.50 mg/dL (0.1-1.2) 06/17/18 02:54 AST 22 units/L (5-40) 06/17/18 02:54 ALT 20 units/L (7-56) 06/17/18 02:54 Alkaline Phosphatase 58 units/L (35-129) 06/17/18 02:54 Troponin T < 0.010 ng/mL (0.00-0.029) 06/17/18 05:23 Total Protein 6.9 g/dL (6.3-8.2) 06/17/18 02:54 Albumin 4.2 g/dL (3.9-5) 06/17/18 02:54 Albumin/Globulin Ratio 1.6 % 06/17/18 02:54 Nutrition/Malnutrition Assess - Dietary Evaluation Nutrition/Malnutrition Findings: Nutrition Notes Start: 06/19/18 14:07 Freq: Status: Active Protocol: Document 06/19/18 14:07 (Rec: 06/19/18 14:08 [email or web address]) Nutrition Notes Need for Assessment generated from: real estate lawyer Initial or Follow up Brief Note Subjective/Other Information Screened for skin risk. Julius 22 points. Nutrition Intervention Revisit per MD consult or patient Sign Off request:
--- NOTE | 2018-06-20 11:06 | Consultation ---
History of Present Illness Consult date: 06/20/18 Reason for consult: dyspnea, COPD History of present illness: Came to see case of a 62-year-old male with prior history of asthma/COPD, admitted with shortness of breath. Patient known to us with prior history of COPD treatment. Per notes, presented to the emergency room because he has been having shortness of breath 2 days y. Has been using his nebulizer treatment with mild improvement. Complains of nonproductive cough, no fever or chills. Patient was given steroids, breathing treatment and started on BiPAP. Prior to admission, some comments stated about patient having reflux earlier. He does report some heartburn but none today. His main issue is she had a severe postnasal drip with sinus congestion triggered coughing spells. No fever reported. Wheezing appears to be better. Past History Past Medical History: COPD, GERD, other (asthma. Right collapsed lung with thoracostomy in [place]) Past Surgical History: Other (right thoracotomy) Medications and Allergies Allergies Allergy/AdvReac Type Severity Reaction Status Date / Time Iodinated Contrast- Oral and Allergy Swelling Verified 02/28/16 03:21 IV Dye [Iodinated Contrast Media - IV Dye] Home Medications Medication Instructions Recorded Confirmed Last Taken Type Aclidinium [place] [Tudorza 2 puff IH BID 01/12/16 06/17/18 01/15/18 History Pressair] Budesoni/Formotero 160-4.5(Nf) 2 puff IH BID 01/12/16 06/17/18 01/15/18 History [Symbicort 160-4.5 (Nf)] Aspirin [Adult Low Dose Aspirin EC] 81 mg PO QAM 01/15/18 06/17/18 01/15/18 History Furosemide [Lasix TAB] 40 mg PO QDAY 01/15/18 06/17/18 01/15/18 History Potassium Chloride [Klor-Con 10] 10 meq PO QDAY 01/15/18 06/17/18 01/15/18 History Rivaroxaban [Xarelto] 20 mg PO QDAY 01/15/18 06/17/18 01/15/18 History Albuterol Sulfate [Ventolin HFA] 90 neb IH PRN PRN 05/18/18 06/17/18 Unknown History Fluticasone/Vilanterol [Breo 200 mcg IH BID 05/18/18 06/17/18 Unknown History Ellipta 200-25 Mcg INH] amLODIPine [Norvasc] 10 mg PO HS 05/18/18 06/17/18 Unknown History Albuterol Sulfate [Albuterol 0.63% 0.63 mg IH Q4HR PRN #2 ml 06/12/18 06/17/18 Unknown Rx NEBS] Albuterol Sulfate [Proair 90 mcg IH Q4HR PRN #2 aer.pow.ba 06/12/18 06/17/18 Unknown Rx Respiclick] Furosemide [Lasix] 20 mg PO QHS #7 tablet 06/12/18 06/17/18 Unknown Rx Ipratropium [place] [Atrovent Hfa] 12.9 gm IH Q4HR PRN #1 hfa.aer.ad 06/12/18 06/17/18 Unknown Rx methylPREDNISolone [Medrol] 4 mg PO QDAY #1 tab.ds.pk 06/12/18 06/17/18 Unknown Rx predniSONE [Deltasone] 20 mg PO BID 06/17/18 06/17/18 Unknown History Active Meds: Active Medications Acetaminophen (Tylenol) 650 mg PO Q4H PRN PRN Reason: Pain MILD(1-3)/Fever >100.5/SIMMONS Albuterol/Ipratropium (Duoneb *Not For Prn Use*) 1 ampul IH Q6HRT [facility] Last Admin: 06/20/18 08:56 Dose: Not Given Documented by: Amlodipine Besylate (Norvasc) 10 mg PO [facility] Last Admin: 06/19/18 21:28 Dose: 10 mg Documented by: Arformoterol Tartrate (Brovana Nebu) 15 mcg IH Q12HRT [facility] Last Admin: 06/20/18 08:55 Dose: 15 mcg Documented by: Aspirin (Halfprin Ec) 81 mg PO QAM [facility] Last Admin: 06/20/18 09:21 Dose: 81 mg Documented by: Budesonide (Pulmicort) 0.5 mg IH Q12HRT [facility] Last Admin: 06/20/18 08:56 Dose: 0.5 mg Documented by: Furosemide (Lasix) 40 mg PO QDAY [facility] Last Admin: 06/20/18 09:21 Dose: 40 mg Documented by: Methylprednisolone Sodium Succinate (Solu-Medrol) 80 mg IV Q8HR [facility] Last Admin: 06/20/18 06:53 Dose: 80 mg Documented by: Montelukast Sodium (Singulair) 10 mg PO QHS [facility] Last Admin: 06/19/18 21:29 Dose: 10 mg Documented by: Ondansetron HCl (Zofran) 4 mg IV Q4H PRN PRN Reason: Nausea And Vomiting Rivaroxaban (Xarelto) 20 mg PO QDAY [facility]; Protocol Last Admin: 06/20/18 09:21 Dose: 20 mg Documented by: Sodium Chloride (Sodium Chloride Flush Syringe 10 Ml) 10 ml IV BID [facility] Last Admin: 06/20/18 09:22 Dose: 10 ml Documented by: Sodium Chloride (Sodium Chloride Flush Syringe 10 Ml) 10 ml IV PRN PRN PRN Reason: LINE FLUSH Review of Systems Ears, nose, mouth and throat: nasal congestion, nasal discharge Respiratory: cough, cough with sputum, shortness of breath, dyspnea on exertion, wheezing, no hemoptysis Gastrointestinal: belching, no abdominal pain, no nausea, no vomiting, no diarrhea, no constipation, no change in bowel habits, no hematemesis, no coffee ground emesis, no BRBPR, no melena, no heartburn Physical Examination Vital signs: Vital Signs Temp Pulse Resp BP Pulse Ox 98.4 F 114 H 27 H 138/96 99 06/17/18 02:41 06/17/18 02:41 06/17/18 02:41 06/17/18 02:41 06/17/18 02:41 General appearance: no acute distress, other (morbidly obese) Eyes: non-icteric ENT: oropharynx moist, oropharynx erythematous Effort: normal Ascultation: Bilateral: clear, diminished breath sounds Gastrointestinal: normoactive bowel sounds, non-distended Integumentary: normal Extremities: no cyanosis, no edema Musculoskeletal: no deformities normal mental status, non-focal exam, CN II-XII normal Results - Laboratory Findings CBC and BMP: 06/18/18 04:44 06/18/18 04:44 ABG POC ABG pH 7.364 (7.35-7.45) 06/17/18 13:52 POC ABG pCO2 50.2 (35-45) H 06/17/18 13:52 POC ABG pO2 253 (80-105) H 06/17/18 13:52 POC ABG HCO3 28.6 06/17/18 13:52 POC ABG Total CO2 30 06/17/18 13:52 POC ABG O2 Sat 100 06/17/18 13:52 Abnormal lab findings: Abnormal Labs 06/17/18 06/17/18 06/17/18 02:54 02:54 03:30 WBC MCV 97 H MCH 33 H Lymph % (Auto) Lymph # Seg Neutrophils % Seg Neutrophils # POC ABG pH 7.312 L POC ABG pCO2 60.4 H POC ABG pO2 37 L Potassium 3.5 L Glucose 104 H 06/17/18 06/17/18 06/18/18 03:36 13:52 04:44 WBC 11.3 H MCV 96 H MCH Lymph % (Auto) 8.1 L Lymph # 0.9 L Seg Neutrophils % 85.7 H Seg Neutrophils # 9.7 H POC ABG pH 7.309 L POC ABG pCO2 56.4 H 50.2 H POC ABG pO2 110 H 253 H Potassium Glucose 06/18/18 04:44 WBC MCV MCH Lymph % (Auto) Lymph # Seg Neutrophils % Seg Neutrophils # POC ABG pH POC ABG pCO2 POC ABG pO2 Potassium 5.2 H D Glucose 126 H - Diagnostic Findings Chest x-ray: report reviewed, image reviewed Assessment and Plan COPD with exacerbation Asthma exacerbation Chronic hypercapnic respiratory failure Upper airway cough syndrome, secondary to postnasal drip, chronic rhinitis GERD reflux per history JAMES Morbid obesity Recommendations Nasal saline irrigations 3-4 times a day I ordered nasal ipratropium spray twice a day Ambulate patient and monitor oximetry. Add portable oxygen 2 L/m if oximetry below 89% on room air. Update influenza and pneumonia vaccination, if not completed already. Candidate for pulmonary rehabilitation Pro time between shoulder to by mouth prednisone at this point, if no issues with hyperglycemia Inhaler therapy including LAMA, LABA/ICS therapy, per ongoing home treatment Nutritional support, weight reduction diet. We will refer after discharge for gastric pH monitoring, for chronic cough/asthma sedation evaluation Discussed with patient and in detail. All questions answered.
[2018-06-20] MEDS: SINGULAIR PO SCH (22:11)
[2018-06-20] MEDS: NORVASC PO SCH (22:12)
[2018-06-21] MEDS: SOLU-Medrol IV SCH (05:31)
[2018-06-21] MEDS: PULMICORT IH SCH ×2 (08:42→20:46)
[2018-06-21] MEDS: DUONEB *Not for PRN Use IH SCH ×3 (08:42→20:46)
[2018-06-21] MEDS: BROVANA NEBU IH SCH ×2 (08:42→20:46)
[2018-06-21] MEDS: LASIX PO SCH (09:59)
[2018-06-21] MEDS: XARELTO PO SCH (09:59)
[2018-06-21] MEDS: HALFPRIN EC PO SCH (09:59)
[2018-06-21] MEDS: SODIUM CHLORIDE FLUSH SYRINGE 10 ML IV SCH ×2 (10:00→21:54)
--- NOTE | 2018-06-21 10:47 | Progress Note ---
Assessment and Plan Assessment and plan: Acute hypoxemic respiratory failure. Continue O2, supportive care and BiPAP if clinically indicated. Obtain walk fit test for home O2. Pulmonary following Acute asthma exacerbation. Continue systemic steroids, bronchodilators/nebulizer treatments. COPD exacerbation. As above. JAMES. Morbid obesity. Hypertension. Continue antihypertensive medications. History of PE. Continue xarelto History Interval history: No new issues overnight. Hospitalist Physical - Constitutional Vitals: Temp Pulse Resp BP Pulse Ox 97.8 F 90 20 161/96 94 06/21/18 10:13 06/21/18 10:11 06/21/18 10:11 06/21/18 10:11 06/21/18 10:11 General appearance: Present: no acute distress, well-nourished - EENT Eyes: Present: PERRL, EOM intact ENT: hearing intact, clear oral mucosa, dentition normal - Neck Neck: Present: supple, normal ROM - Respiratory Respiratory effort: normal Respiratory: bilateral: wheezing - Cardiovascular Rhythm: regular Heart Sounds: Present: S1 & S2. Absent: gallop, rub - Extremities Extremities: no ischemia, No edema, Full ROM - Abdominal General gastrointestinal: soft, non-tender, non-distended, normal bowel sounds - Integumentary Integumentary: Present: clear, warm, dry - Neurologic Neurologic: CNII-XII intact, moves all extremities Results - Labs CBC & Chem 7: 06/18/18 04:44 06/18/18 04:44 Labs: Laboratory Last Values WBC 11.3 K/mm3 (4.5-11.0) H 06/18/18 04:44 RBC 4.02 M/mm3 (3.65-5.03) 06/18/18 04:44 Hgb 12.9 gm/dl (11.8-15.2) 06/18/18 04:44 Hct 38.5 % (35.5-45.6) 06/18/18 04:44 MCV 96 fl (84-94) H 06/18/18 04:44 MCH 32 pg (28-32) 06/18/18 04:44 MCHC 34 % (32-34) 06/18/18 04:44 RDW 13.4 % (13.2-15.2) 06/18/18 04:44 Plt Count 203 K/mm3 (140-440) 06/18/18 04:44 Lymph % (Auto) 8.1 % (13.4-35.0) L 06/18/18 04:44 [place] % (Auto) 4.9 % (0.0-7.3) 06/18/18 04:44 Eos % (Auto) 0.0 % (0.0-4.3) 06/18/18 04:44 Baso % (Auto) 1.3 % (0.0-1.8) 06/18/18 04:44 Lymph # 0.9 K/mm3 (1.2-5.4) L 06/18/18 04:44 [place] # 0.6 K/mm3 (0.0-0.8) 06/18/18 04:44 Eos # 0.0 K/mm3 (0.0-0.4) 06/18/18 04:44 Baso # 0.1 K/mm3 (0.0-0.1) 06/18/18 04:44 Seg Neutrophils % 85.7 % (40.0-70.0) H 06/18/18 04:44 Seg Neutrophils # 9.7 K/mm3 (1.8-7.7) H 06/18/18 04:44 POC ABG pH 7.364 (7.35-7.45) 06/17/18 13:52 POC ABG pCO2 50.2 (35-45) H 06/17/18 13:52 POC ABG pO2 253 (80-105) H 06/17/18 13:52 POC ABG HCO3 28.6 06/17/18 13:52 POC ABG Total CO2 30 06/17/18 13:52 POC ABG O2 Sat 100 06/17/18 13:52 POC ABG Base Excess 3 06/17/18 13:52 FiO2 50 % 06/17/18 13:52 Sodium 143 mmol/L (137-145) 06/18/18 04:44 Potassium 5.2 mmol/L (3.6-5.0) H D 06/18/18 04:44 Chloride 102.4 mmol/L (98-107) 06/18/18 04:44 Carbon Dioxide 28 mmol/L (22-30) 06/18/18 04:44 Anion Gap 18 mmol/L 06/18/18 04:44 BUN 20 mg/dL (9-20) 06/18/18 04:44 Creatinine 0.9 mg/dL (0.8-1.5) 06/18/18 04:44 Estimated GFR > 60 ml/min 06/18/18 04:44 BUN/Creatinine Ratio 22 % 06/18/18 04:44 Glucose 126 mg/dL (75-100) H 06/18/18 04:44 Calcium 9.1 mg/dL (8.4-10.2) 06/18/18 04:44 Total Bilirubin 0.50 mg/dL (0.1-1.2) 06/17/18 02:54 AST 22 units/L (5-40) 06/17/18 02:54 ALT 20 units/L (7-56) 06/17/18 02:54 Alkaline Phosphatase 58 units/L (35-129) 06/17/18 02:54 Troponin T < 0.010 ng/mL (0.00-0.029) 06/17/18 05:23 Total Protein 6.9 g/dL (6.3-8.2) 06/17/18 02:54 Albumin 4.2 g/dL (3.9-5) 06/17/18 02:54 Albumin/Globulin Ratio 1.6 % 06/17/18 02:54 Nutrition/Malnutrition Assess - Dietary Evaluation Nutrition/Malnutrition Findings: Nutrition Notes Start: 06/19/18 14:07 Freq: Status: Active Protocol: Document 06/19/18 14:07 (Rec: 06/19/18 14:08 [email or web address]) Nutrition Notes Need for Assessment generated from: can dragger Initial or Follow up Brief Note Subjective/Other Information Screened for skin risk. Julius 22 points. Nutrition Intervention Revisit per MD consult or patient Sign Off request:
--- NOTE | 2018-06-21 11:51 | Progress Note ---
Assessment and Plan COPD with exacerbation Asthma exacerbation. Improved Chronic hypercapnic respiratory failure Upper airway cough syndrome, secondary to postnasal drip, chronic rhinitis GERD reflux per history JAMES Morbid obesity Recommendations Nasal saline irrigations 3-4 times a day Nasal ipratropium spray twice a day Can probably be started on prednisone today Inhaler therapy including LAMA, LABA/ICS therapy, per ongoing home treatment Nutritional support, weight reduction diet. We will refer after discharge for gastric pH monitoring, for chronic cough/asthma sedation evaluation Discussed with patient and in detail. All questions answered. Subjective Date of service: 06/21/18 Principal diagnosis: aspect, COPD exacerbation, JAMES Interval history: Feels much better today. Reports that he was able to walk down the hallway. Only occasional wheezing. Still with runny nose Objective Vital Signs - 12hr 06/21/18 06/21/18 06/21/18 00:00 04:19 08:42 Temperature 97.5 F L Pulse Rate 102 H 63 Pulse Rate [ 99 H Posterior Bilateral Throughout] Respiratory 20 Rate Respiratory 20 Rate [Posterior Bilateral Throughout] Blood Pressure 133/73 O2 Sat by Pulse 98 95 Oximetry 06/21/18 06/21/18 06/21/18 08:52 10:11 10:13 Temperature 97.8 F Pulse Rate 90 Pulse Rate [ 76 Posterior Bilateral Throughout] Respiratory 20 Rate Respiratory 20 Rate [Posterior Bilateral Throughout] Blood Pressure 161/96 O2 Sat by Pulse 94 Oximetry Constitutional: no acute distress, other (morbidly obese) Eyes: non-icteric ENT: oropharynx moist, oropharynx erythematous Effort: normal Ascultation: Bilateral: clear, diminished breath sounds, wheezes (sporadic) Gastrointestinal: normoactive bowel sounds, non-distended Integumentary: normal Extremities: no cyanosis, no edema Neurologic: normal mental status, non-focal exam, CN II-XII normal CBC and BMP: 06/18/18 04:44 06/18/18 04:44 ABG, PT/INR, D-dimer: ABG POC ABG pH 7.364 (7.35-7.45) 06/17/18 13:52 POC ABG pCO2 50.2 (35-45) H 06/17/18 13:52 POC ABG pO2 253 (80-105) H 06/17/18 13:52 POC ABG HCO3 28.6 06/17/18 13:52 POC ABG Total CO2 30 06/17/18 13:52 POC ABG O2 Sat 100 06/17/18 13:52 Abnormal lab findings: Abnormal Labs 06/17/18 06/17/18 06/17/18 02:54 02:54 03:30 WBC MCV 97 H MCH 33 H Lymph % (Auto) Lymph # Seg Neutrophils % Seg Neutrophils # POC ABG pH 7.312 L POC ABG pCO2 60.4 H POC ABG pO2 37 L Potassium 3.5 L Glucose 104 H 06/17/18 06/17/18 06/18/18 03:36 13:52 04:44 WBC 11.3 H MCV 96 H MCH Lymph % (Auto) 8.1 L Lymph # 0.9 L Seg Neutrophils % 85.7 H Seg Neutrophils # 9.7 H POC ABG pH 7.309 L POC ABG pCO2 56.4 H 50.2 H POC ABG pO2 110 H 253 H Potassium Glucose 06/18/18 04:44 WBC MCV MCH Lymph % (Auto) Lymph # Seg Neutrophils % Seg Neutrophils # POC ABG pH POC ABG pCO2 POC ABG pO2 Potassium 5.2 H D Glucose 126 H
[2018-06-21] MEDS ORDERED: SOLU MEDROL IV SCH (12:00)
[2018-06-21] MEDS ORDERED: D5W IV SCH (12:00)
[2018-06-21] MEDS ORDERED: SOLU-Medrol IV ONE (13:30)
[2018-06-21] MEDS: ATROVENT NS SCH ×2 (16:04→21:53)
[2018-06-21] MEDS: DELTASONE PO SCH (18:48)
[2018-06-21] MEDS: NORVASC PO SCH (21:53)
[2018-06-21] MEDS: SINGULAIR PO SCH (21:54)
[2018-06-22] MEDS: DUONEB *Not for PRN Use IH SCH ×2 (02:26→07:56)
[2018-06-22] MEDS: ATROVENT NS SCH (05:49)
[2018-06-22] MEDS: PULMICORT IH SCH (07:56)
[2018-06-22] MEDS: BROVANA NEBU IH SCH (07:56)
--- NOTE | 2018-06-22 09:33 | Discharge Summary ---
Providers - Providers Date of Admission: 06/17/18 06:00 Date of discharge: 06/22/18 Attending physician: SAGAR VILLARREAL 06/19/18 11:08 Consult to Physician [CONS] Routine Comment: Consulting Provider: STAN ODONNELL Physician Instructions: Reason For Exam: copd/asthma exac Primary care physician: ABSTRACT SEARCHER Hospitalization Reason for admission: asthma COPD exacerbation Condition: Stable Hospital course: 62-year-old male with prior history of asthma/COPD, admitted with shortness of breath for 2 days prior to admission. Patient reportedly had been using his nebulizer treatment with mild improvement. He complained of nonproductive cough but no fever or chills. The patient was admitted to medical surgical floor with diagnosis of acute asthma and COPD exacerbation with acute hypoxemic respiratory failure. Patient was treated with IV steroids, breathing treatment and started on BiPAP. The patient eventually was weaned from BiPAP to nasal cannula O2. The patient had significant improvement throughout hospitalization and returned back to his baseline with regards to his respiratory status. He did of note report and complaint of severe postnasal drip with sinus congestion triggered coughing spells. The patient was seen by pulmonary consultation. Pulmonary recommended nasal saline irrigations due to 4 times a day with nasal ipratropium twice a day. Walk fit test was performed but patient was found not to need home oxygen. Patient was also treated with Inhaler therapy including LAMA, LABA/ICS therapy. She was felt to have received maximal hospital benefit and will discharge home. Discharge time 32 minutes. We will refer after discharge for gastric pH monitoring, for chronic cough/asthma sedation evaluation per pulmonary recommendations. Disposition: - TO HOME OR SELFCARE Time spent for discharge: 32 - Discharge Diagnoses (1) Acute exacerbation of COPD with asthma Status: Acute (2) Respiratory distress Status: Acute (3) Acute respiratory failure with hypoxia Status: Acute (4) Asthma exacerbation Status: Acute (5) GERD (gastroesophageal reflux disease) Status: Chronic Qualifiers: Esophagitis presence: without esophagitis Qualified Code(s): K21.9 - Gastro-esophageal reflux disease without esophagitis (6) Hypertension Status: Chronic Qualifiers: Hypertension type: essential hypertension Qualified Code(s): I10 - Essential (primary) hypertension Core Measure Documentation - Palliative Care Palliative Care/ Comfort Measures: Not Applicable - Core Measures Any of the following diagnoses?: none Exam - Constitutional Vitals: Temp Pulse Resp BP Pulse Ox 97.5 F L 81 18 158/96 94 06/22/18 08:51 06/22/18 08:43 06/22/18 08:43 06/22/18 08:43 06/22/18 08:43 General appearance: Present: no acute distress, well-nourished - EENT Eyes: Present: PERRL ENT: hearing intact, clear oral mucosa - Neck Neck: Present: supple, normal ROM - Respiratory Respiratory effort: normal Respiratory: bilateral: CTA - Cardiovascular Heart Sounds: Present: S1 & S2. Absent: rub, click - Extremities Extremities: pulses symmetrical, No edema Peripheral Pulses: within normal limits - Abdominal General gastrointestinal: Present: soft, non-tender, non-distended, normal bowel sounds Male genitourinary: Present: normal - Integumentary Integumentary: Present: clear, warm, dry - Musculoskeletal Musculoskeletal: gait normal, strength equal bilaterally - Psychiatric Psychiatric: appropriate mood/affect, intact judgment & insight - Neurologic Neurologic: CNII-XII intact, moves all extremities Plan Activity: advance as tolerated Weight Bearing Status: Weight Bear as Tolerated Diet: regular Follow up with: PRIMARY CAREMD [Primary Care Provider] - 3-5 Days STAN ODONNELL MD [Staff Physician] - 7 Days Prescriptions: Aspirin [Adult Low Dose Aspirin EC] 81 mg PO QAM #30 tablet. Ipratropium 0.06% [Atrovent] 2 spray NS Q8HR 30 Days bottle Ipratropium [place] [Atrovent Hfa] 12.9 gm IH Q4HR PRN #1 hfa.aer.ad PRN Reason: Wheezing Fluticasone/Vilanterol [Breo Ellipta 200-25 Mcg INH] 200 mcg IH BID 30 Days blst.w.dev Arformoterol Nebu [Brovana Nebu] 15 mcg IH Q12HRT 30 Days ml Potassium Chloride [Klor-Con 10] 10 meq PO QDAY 30 Days tablet.er Furosemide [Lasix] 20 mg PO QHS #7 tablet methylPREDNISolone [Medrol Dose Jf] 4 mg PO QDAY #1 tab.ds.pk amLODIPine [Norvasc] 10 mg PO HS #30 tablet Budesonide [Pulmicort Respules] 0.5 mg IH Q12HRT 30 Days nebu Montelukast [Singulair] 10 mg PO QHS #30 tablet Budesoni/Formotero 160-4.5(Nf) [Symbicort 160-4.5 (Nf)] 2 puff IH BID 30 Days inha Rivaroxaban [Xarelto] 20 mg PO QDAY #30 tablet
[2018-06-22] MEDS ORDERED: DELTASONE PO SCH (10:00)
[2018-06-22] MEDS: DELTASONE PO SCH (10:08)
[2018-06-22] MEDS: XARELTO PO SCH (10:08)
[2018-06-22] MEDS: LASIX PO SCH (10:08)
[2018-06-22] MEDS: HALFPRIN EC PO SCH (10:08)
[2018-06-22] MEDS: SODIUM CHLORIDE FLUSH SYRINGE 10 ML IV SCH (10:09)
--- NOTE | 2018-06-22 11:43 | Progress Note ---
Assessment and Plan - Patient Problems (1) Respiratory distress Current Visit: Yes Status: Acute (2) SOB (shortness of breath) Current Visit: Yes Status: Acute (3) Acute respiratory failure with hypoxia Current Visit: No Status: Acute (4) Asthma exacerbation Current Visit: No Status: Acute (5) Bronchitis Current Visit: No Status: Acute (6) CHF (congestive heart failure) Current Visit: No Status: Chronic Qualifiers: Heart failure type: combined systolic and diastolic (7) GERD (gastroesophageal reflux disease) Current Visit: No Status: Chronic Qualifiers: Esophagitis presence: without esophagitis Qualified Code(s): K21.9 - Gastro-esophageal reflux disease without esophagitis Subjective Principal diagnosis: aspect, COPD exacerbation, JAMES Interval history: feels better Objective Vital Signs - 12hr 06/22/18 06/22/18 06/22/18 00:00 02:25 04:26 Temperature 97.4 F L Pulse Rate 62 72 58 L Pulse Rate [ Anterior Bilateral Throughout] Respiratory 23 18 Rate Respiratory Rate [Anterior Bilateral Throughout] Blood Pressure 144/81 O2 Sat by Pulse 100 97 Oximetry 06/22/18 06/22/18 06/22/18 07:56 08:06 08:43 Temperature Pulse Rate 81 Pulse Rate [ 75 78 Anterior Bilateral Throughout] Respiratory 18 Rate Respiratory 20 20 Rate [Anterior Bilateral Throughout] Blood Pressure 158/96 O2 Sat by Pulse 95 94 Oximetry 06/22/18 06/22/18 08:44 08:51 Temperature 97.5 F L 97.5 F L Pulse Rate Pulse Rate [ Anterior Bilateral Throughout] Respiratory Rate Respiratory Rate [Anterior Bilateral Throughout] Blood Pressure O2 Sat by Pulse Oximetry Constitutional: no acute distress, other (morbidly obese) Eyes: non-icteric ENT: oropharynx moist, oropharynx erythematous Effort: normal Ascultation: Bilateral: clear Gastrointestinal: normoactive bowel sounds, non-distended Integumentary: normal Extremities: no cyanosis, no edema Neurologic: normal mental status, non-focal exam, CN II-XII normal CBC and BMP: 06/18/18 04:44 06/18/18 04:44 ABG, PT/INR, D-dimer: ABG POC ABG pH 7.364 (7.35-7.45) 06/17/18 13:52 POC ABG pCO2 50.2 (35-45) H 06/17/18 13:52 POC ABG pO2 253 (80-105) H 06/17/18 13:52 POC ABG HCO3 28.6 06/17/18 13:52 POC ABG Total CO2 30 06/17/18 13:52 POC ABG O2 Sat 100 06/17/18 13:52 Abnormal lab findings: Abnormal Labs 06/17/18 06/17/18 06/17/18 02:54 02:54 03:30 WBC MCV 97 H MCH 33 H Lymph % (Auto) Lymph # Seg Neutrophils % Seg Neutrophils # POC ABG pH 7.312 L POC ABG pCO2 60.4 H POC ABG pO2 37 L Potassium 3.5 L Glucose 104 H 06/17/18 06/17/18 06/18/18 03:36 13:52 04:44 WBC 11.3 H MCV 96 H MCH Lymph % (Auto) 8.1 L Lymph # 0.9 L Seg Neutrophils % 85.7 H Seg Neutrophils # 9.7 H POC ABG pH 7.309 L POC ABG pCO2 56.4 H 50.2 H POC ABG pO2 110 H 253 H Potassium Glucose 06/18/18 04:44 WBC MCV MCH Lymph % (Auto) Lymph # Seg Neutrophils % Seg Neutrophils # POC ABG pH POC ABG pCO2 POC ABG pO2 Potassium 5.2 H D Glucose 126 H
[2018-06-22 11:44] VITALS: BP 133/81
== END 2018-06-22 12:50 | disposition home or self-care (01) | DRG 189 ==
LOC: ED 02:33 → SUATTDRO 02:33 → 4A 06:00
PROVIDERS: ADMIT Internal Medicine; ATTEND Hospitalist
PROC: 5A09557 Assistance with Respiratory Ventilation, Greater than 96 Consecutive Hours, Continuous Positive Airway Pressure (ICD-10-PCS; principal; 2018-06-17)
PROC: 4A033R1 Measurement of Arterial Saturation, Peripheral, Percutaneous Approach (ICD-10-PCS; 2018-06-17)
DX: J96.21 Acute and chronic respiratory failure with hypoxia (principal); J45.901 Unspecified asthma with (acute) exacerbation; J44.1 Chronic obstructive pulmonary disease with (acute) exacerbation; I50.9 Heart failure, unspecified; I11.0 Hypertensive heart disease with heart failure; K21.9 Gastro-esophageal reflux disease without esophagitis; J31.0 Chronic rhinitis; G47.33 Obstructive sleep apnea (adult) (pediatric); F12.90 Cannabis use, unspecified, uncomplicated; E66.01 Morbid (severe) obesity due to excess calories; Z68.30 Body mass index [BMI] 30.0-30.9, adult; Z86.711 Personal history of pulmonary embolism; Z91.041 Radiographic dye allergy status; Z79.899 Other long term (current) drug therapy; Z82.49 Family history of ischemic heart disease and other diseases of the circulatory system; Z72.89 Other problems related to lifestyle
CPT/HCPCS: 36415; 36600; 71045; 80048; 80053; 82803; 84484; 85025; 93005; 93010; 94640; 94660; 94760; 96365; 96375; G0378; J1100; J1650; J1940; J2060; J2405; J2920; J2930; J3475; J7512